=== PATIENT | female | born 1995 | race Caucasian/White ===

== ENCOUNTER 2017-02-26 20:15 | Emergency (ER) | payer MEDICAID ==
--- NOTE | 2017-02-26 20:55 | ER Document Report ---
ED Medical Screen (RME) - General Chief Complaint: near syncopy Stated Complaint: DIZZINESS Time Seen by Provider: 02/26/17 20:48 Notes: This 21-year-old female patient who is 21 weeks reports about a month history of almost blacking out with dizziness and almost fainting. She states it usually happens in the mornings and afternoons when she is at work and been standing for a while. I have greeted and performed a rapid initial assessment of this patient. A comprehensive ED assessment and evaluation of the patient, analysis of test results and completion of the medical decision making process will be conducted by additional ED providers. TRAVEL OUTSIDE OF THE [place] IN LAST 30 DAYS: No - Related Data Allergies/Adverse Reactions: Penicillins Allergy (Severe, Verified 02/26/17 20:20) Swelling of tongue Cephalosporins Allergy (Mild, Verified 02/26/17 20:20) Hives Sulfa (Sulfonamide Antibiotics) Allergy (Mild, Verified 02/26/17 20:20) Hives amoxicillin trihydrate [From Augmentin] Allergy (Verified 02/26/17 20:20) cefaclor [From Ceclor] Allergy (Verified 02/26/17 20:20) codeine [Codeine] Allergy (Verified 02/26/17 20:20) Potassium Clavulanate * [From Augmentin] Allergy (Verified 02/26/17 20:20) Home Medications: Current Home Medications Pnv,Calcium 72/Iron/Folic Acid [ Vitamin Plus Low Iron] 1 tab PO DAILY 02/26/17 [History] Past Medical History - Social History Chew tobacco use (# tins/day): No Frequency of alcohol use: None Drug Abuse: None - Past Medical History Cardiac Medical History: Reports: Hx Hypertension - WITH FIRST Denies: Hx Pulmonary Embolism, Hx Heart Murmur Pulmonary Medical History: Reports: Hx Asthma - childhood Denies: Hx Sleep Apnea, Hx Tuberculosis Neurological Medical History: Reports: Hx Migraine. Denies: Hx Cerebrovascular Accident, Hx Seizures Endocrine Medical History: Denies: Hx Hyperthyroidism, Hx Hypothyroidism Renal/ Medical History: Denies: Hx Kidney Stones, Hx Ovarian Cysts, Hx Peritoneal Dialysis, Hx Pelvic Inflammatory Disease Malignancy Medical History: Denies: Hx Breast Cancer, Hx Cervical Cancer, Hx Ovarian Cancer GI Medical History: Reports: Hx Gastroesophageal Reflux Disease. Denies: Hx Hiatal Hernia, Hx Ulcer Musculoskeltal Medical History: Denies Hx Fibromyalgia Psychiatric Medical History: Denies: Hx Bipolar Disorder, Hx Depression, Hx Post Traumatic Stress Disorder , Hx Schizophrenia Traumatic Medical History: Denies: Hx Fractures Infectious Medical History: Denies: Hx HIV Past Surgical History: Reports: Hx Section - x 1 on 04/23/12 - Immunizations Immunizations up to date: Yes Hx Diphtheria, Pertussis, Tetanus Vaccination: Yes - given today Physical Exam - Vital signs Vitals: Temp Pulse Resp BP Pulse Ox 99.3 F 105 H 18 135/70 H 100 02/26/17 20:21 02/26/17 20:21 02/26/17 20:21 02/26/17 20:21 02/26/17 20:21 Course - Vital Signs Vital signs: Temp Pulse Resp BP Pulse Ox 99.3 F 105 H 18 135/70 H 100 02/26/17 20:21 02/26/17 20:21 02/26/17 20:21 02/26/17 20:21 02/26/17 20:21
[2017-02-26 21:21] LABS: ABSOLUTE BASOPHILS # (AUTO) 0.1 10^3/uL (0.0-0.2); ABSOLUTE EOSINOPHILS # (AUTO) 0.2 10^3/uL (0.0-0.6); ABSOLUTE LYMPHOCYTES (AUTO) 3.6 10^3/uL (0.5-4.7); ABSOLUTE MONOCYTES (AUTO) 1.1 10^3/uL (0.1-1.4); ABSOLUTE NEUT (AUTO) 8.9 10^3/uL (1.7-8.2); EOSINOPHILS % (AUTO) 1.5 % (0-6); HEMATOCRIT 29.9 % (36.0-47.0); HEMOGLOBIN 10.6 g/dL (12.0-15.5); HGB HCT DIFFERENCE 1.9; LYMPHOCYTES % (AUTO) 25.6 % (13-45); MEAN CORPUSCULAR HEMOGLOBIN 32.2 pg (27.0-33.4); MEAN CORPUSCULAR HGB CONC 35.6 g/dL (32.0-36.0); MEAN CORPUSCULAR VOLUME 91 fl (80-97); MONOCYTES % (AUTO) 7.9 % (3-13); RED CELL DISTRIBUTION WIDTH 12.5 % (11.5-14.0)
--- NOTE | 2017-02-26 21:21 | ER Document Report ---
ED General - General Chief Complaint: near syncopy Stated Complaint: DIZZINESS Time Seen by Provider: 02/26/17 20:48 Notes: Patient is a 21-year-old female, at 21 weeks gestation, the comes emergency department for chief complaint of sensations of almost passing out. She states that she has been doing this several times over the past month, she describes typical symptoms of vision blurring, lightheadedness, shaking hands, sweating, and vomiting afterwards. She states she usually gets this after she has been standing for a while and this usually happens at work. She denies palpitations, chest pain, shortness of breath. She denies history of the same as previous pregnancies. She denies any vaginal bleeding, abdominal or back pain, headache, fever. She reports normal nonbloody bowel movements. She denies any current symptoms. TRAVEL OUTSIDE OF THE [place] IN LAST 30 DAYS: No - Related Data Allergies/Adverse Reactions: Penicillins Allergy (Severe, Verified 02/26/17 20:20) Swelling of tongue Cephalosporins Allergy (Mild, Verified 02/26/17 20:20) Hives Sulfa (Sulfonamide Antibiotics) Allergy (Mild, Verified 02/26/17 20:20) Hives amoxicillin trihydrate [From Augmentin] Allergy (Verified 02/26/17 20:20) cefaclor [From Ceclor] Allergy (Verified 02/26/17 20:20) codeine [Codeine] Allergy (Verified 02/26/17 20:20) Potassium Clavulanate * [From Augmentin] Allergy (Verified 02/26/17 20:20) Home Medications: Current Home Medications Pnv,Calcium 72/Iron/Folic Acid [ Vitamin Plus Low Iron] 1 tab PO DAILY 02/26/17 [History] Past Medical History - General Information source: Patient, Parent - Social History Smoking Status: Former Smoker Chew tobacco use (# tins/day): No Frequency of alcohol use: None Drug Abuse: None Lives with: Family Family History: Reviewed & Not Pertinent Patient has suicidal ideation: No Patient has homicidal ideation: No - Past Medical History Cardiac Medical History: Reports: Hx Hypertension - WITH FIRST Denies: Hx Pulmonary Embolism, Hx Heart Murmur Pulmonary Medical History: Reports: Hx Asthma - childhood Denies: Hx Sleep Apnea, Hx Tuberculosis Neurological Medical History: Reports: Hx Migraine. Denies: Hx Cerebrovascular Accident, Hx Seizures Endocrine Medical History: Denies: Hx Hyperthyroidism, Hx Hypothyroidism Renal/ Medical History: Denies: Hx Kidney Stones, Hx Ovarian Cysts, Hx Peritoneal Dialysis, Hx Pelvic Inflammatory Disease Malignancy Medical History: Denies: Hx Breast Cancer, Hx Cervical Cancer, Hx Ovarian Cancer GI Medical History: Reports: Hx Gastroesophageal Reflux Disease. Denies: Hx Hiatal Hernia, Hx Ulcer Musculoskeltal Medical History: Denies Hx Fibromyalgia Psychiatric Medical History: Denies: Hx Bipolar Disorder, Hx Depression, Hx Post Traumatic Stress Disorder , Hx Schizophrenia Traumatic Medical History: Denies: Hx Fractures Infectious Medical History: Denies: Hx HIV Past Surgical History: Reports: Hx Section - x 1 on 04/23/12 - Immunizations Immunizations up to date: Yes Hx Diphtheria, Pertussis, Tetanus Vaccination: Yes - given today Review of Systems - Review of Systems Constitutional: No symptoms reported EENT: No symptoms reported Cardiovascular: See HPI Respiratory: No symptoms reported Gastrointestinal: See HPI Genitourinary: No symptoms reported Female Genitourinary: No symptoms reported Musculoskeletal: No symptoms reported Skin: No symptoms reported Hematologic/Lymphatic: No symptoms reported Neurological/Psychological: See HPI Physical Exam - Vital signs Vitals: Temp Pulse Resp BP Pulse Ox 99.3 F 105 H 18 135/70 H 100 02/26/17 20:21 02/26/17 20:21 02/26/17 20:21 02/26/17 20:21 02/26/17 20:21 Interpretation: Normal - General General appearance: Appears well, Alert In distress: None - HEENT Head: Normocephalic, Atraumatic Eyes: Normal Pupils: PERRL - Respiratory Respiratory status: No respiratory distress Chest status: Nontender Breath sounds: Normal Chest palpation: Normal - Cardiovascular Rhythm: Regular, Tachycardia Heart sounds: Normal auscultation, S1 appreciated, S2 appreciated Murmur: No - Abdominal Inspection: Normal Distension: No distension Bowel sounds: Normal Tenderness: Nontender. No: Tender, Guarding Organomegaly: No organomegaly - Back Back: Normal, Nontender. No: Tender - Extremities General upper extremity: Normal inspection, Nontender, Normal strength, Normal temperature General lower extremity: Normal inspection, Nontender, Normal strength, Normal temperature - Neurological Neuro grossly intact: Yes Cognition: Normal Orientation: AAOx4 [place] Coma Scale Eye Opening: Spontaneous [place] Coma Scale Verbal: Oriented [place] Coma Scale Motor: Obeys Commands Yoly Coma Scale Total: 15 Speech: Normal Motor strength normal: LUE, RUE, LLE, RLE Sensory: Normal - Psychological Associated symptoms: Normal affect, Normal mood - Skin Skin Temperature: Warm Skin Moisture: Dry Skin Color: Normal Course - Re-evaluation Re-evalutation: Patient describes symptoms consistent with near syncope. On examination she is mildly tachycardic. She denies shortness of breath, chest pain, or any current symptoms. When she stands her heart rate elevates to 130. EKG is sinus rhythm with no T-wave inversions or some ST segment changes in consecutive leads, normal RI interval. CBC shows mild leukocytosis which is nonspecific given patient's reported episode of vomiting earlier. Mild normocytic anemia. Chemistry shows very mildly elevated LFTs, patient has no upper abdominal pain on examination, she states she has been taking Tylenol. Blood pressure is normal, no protein in the urine. Urinalysis shows elevated specific gravity and cloudy urine, also some contamination with some bacteria and white blood cells/leukocyte esterase. I discussed this with patient, she denies dysuria or any urinary tract infection symptoms, states she is very familiar with these, she declines antibiotics, urine culture was placed. Patient was given 1 L normal saline, afterwards her tachycardia resolved, when she stands her heart rate is normal. She denies any current symptoms. I suspect her near syncope was vasovagal symptoms secondary to , dehydration, and anemia. Discussed this in detail. Patient states that she is ready to leave, discussed recommendations, follow-up, return precautions in detail with patient and mother. They state understanding and agreement. - Vital Signs Vital signs: Temp Pulse Resp BP Pulse Ox 99.3 F 105 H 16 122/67 98 02/26/17 20:21 02/26/17 20:21 02/26/17 23:45 02/26/17 23:45 02/26/17 23:45 - Laboratory Result Diagrams: 02/26/17 21:05 02/26/17 21:05 Laboratory results interpreted by me: 02/26/17 02/26/17 02/26/17 21:02 21:05 21:05 WBC 14.0 H RBC 3.30 L Hgb 10.6 L Hct 29.9 L Absolute Neutrophils 8.9 H Sodium 136.7 L Carbon Dioxide 21 L Creatinine 0.49 L Total Bilirubin 0.1 L AST 38 H ALT 78 H Total Protein 6.2 L Urine Urobilinogen 2.0 H Ur Leukocyte Esterase LARGE H Discharge - Discharge Clinical Impression: Near syncope Condition: Stable Disposition: HOME, SELF-CARE Additional Instructions: Your symptoms are most likely a combination of dehydration, anemia, and symptoms. Recommendation is to stay better hydrated, if you feel like you are going to pass out lie on the ground and put her feet up into the air. Follow-up with [facility] for additional evaluation and treatment. Return for any concerning or worsening symptoms including chest pain, difficulty breathing, passing out, or any other concerning symptoms. Vasovagal Symptoms Your symptoms seem to be due to a fall in blood pressure, caused by the interaction of your nervous system with your circulatory system. This can result in abnormally slow pulse rate, faintness, abnormal sensations, low blood pressure, difficulty with vision, or fainting (syncope). Vasovagal symptoms may be brought on by emotional distress, pain, dehydration, bleeding, or medication effects. Often, no cause can be identified. Your exam has revealed no signs of a serious problem. Usually, no further tests are required. However, if further workup has been recommended it's important that you follow up as instructed. Should you feel lightheaded or "about to faint," you should sit or lie down as quickly as possible. The episode will usually pass. Recurring symptoms will require further evaluation to determine the cause. Call the physician if you develop severe prolonged dizziness, headache, chest pain, shortness of breath, or other new symptoms. Referrals: JEANNIE JORDAN MD [Primary Care Provider] - Follow up as needed
[2017-02-26 21:36] LABS: ALANINE AMINOTRANSFERASE 78 U/L (9-52); ALBUMIN 3.7 g/dL (3.5-5.0); ALKALINE PHOSPHATASE 64 U/L (38-126); ANION GAP 12 (5-19); ASPARTATE AMINO TRANSFERASE 38 U/L (14-36); BILIRUBIN,DIRECT 0.1 mg/dL (0.0-0.4); BILIRUBIN,TOTAL 0.1 mg/dL (0.2-1.3); BLOOD UREA NITROGEN 7 mg/dL (7-20); CALCIUM 9.2 mg/dL (8.4-10.2); CARBON DIOXIDE 21 mmol/L (22-30); CHLORIDE 104 mmol/L (98-107); CREATININE RESULT 0.49 mg/dL (0.52-1.25); GLUCOSE 91 mg/dL (75-110); POTASSIUM 3.8 mmol/L (3.6-5.0); SODIUM 136.7 mmol/L (137-145); TOTAL PROTEIN 6.2 g/dL (6.3-8.2)
[2017-02-26 21:39] LABS: AMORPHOUS SEDIMENT,URINE TRACE /HPF; APPEARANCE,URINE CLOUDY; BILIRUBIN,URINE NEGATIVE (NEGATIVE); GLUCOSE, URINE NEGATIVE (NEGATIVE); KETONES,URINE NEGATIVE (NEGATIVE); LEUKOCYTE ESTERASE,URINE LARGE (NEGATIVE); NITRITE,URINE NEGATIVE (NEGATIVE); PROTEIN,URINE NEGATIVE (NEGATIVE); URINE SPECIFIC GRAVITY 1.021
[2017-02-26] MEDS ORDERED: NORMAL SALINE 1000 ML 1,000 ML IV ONE (21:44)
--- NOTE | 2017-02-26 22:59 | EKG REPORT ---
SEVERITY:- NORMAL ECG - SINUS RHYTHM : Confirmed by: Esperanza Hinton 26-Feb-2017 22:59:10
[2017-02-26 23:59] VITALS: BP 122/67
== END 2017-02-26 23:59 | disposition home or self-care (01) ==
LOC: ER 20:15
DX: O26.892 Other specified pregnancy related conditions, second trimester (principal); R55 Syncope and collapse; R00.0 Tachycardia, unspecified; R79.89 Other specified abnormal findings of blood chemistry; O99.012 Anemia complicating pregnancy, second trimester; D50.9 Iron deficiency anemia, unspecified; O21.2 Late vomiting of pregnancy; O99.112 Other diseases of the blood and blood-forming organs and certain disorders involving the immune mechanism complicating pregnancy, second trimester; D72.829 Elevated white blood cell count, unspecified; Z3A.21 21 weeks gestation of pregnancy; Z88.0 Allergy status to penicillin; Z88.1 Allergy status to other antibiotic agents; Z88.2 Allergy status to sulfonamides; Z88.5 Allergy status to narcotic agent; Z87.891 Personal history of nicotine dependence
CPT/HCPCS: 93005; 99284; 96360; 36415; 87086; 85025; 80053; 81001; 93010; J7030

== ENCOUNTER 2017-05-22 09:31 | Outpatient (CLI) | payer MEDICAID ==
--- NOTE | 2017-05-22 11:32 | Non Stress Test Report ---
Non Stress Test Datetime Report Generated by CPN: 05/22/2017 11:32 DEMOGRAPHIC EGA NST: 34.5 INDICATION Indication for Study: Ordered by Provider; Other Indication for Study (NST) Other: ABN AFP VITAL SIGNS Temperature - NST: 98.3 MONITORING Monitor Explained: Monitor Explained; Test Explained; Patient Verbalized Understanding Time on Monitor: 05/22/2017 09:47 Time off Monitor: 05/22/2017 10:15 NST Duration: 28 NST INTERVENTIONS NST Interventions: PO Hydration; Reposition Patient Physician Notified NST: C Avalos CNM BABY A: [id number] BABY A Movement : Present Contraction Frequency : NONE FHR Baseline : 145 Accelerations : 15X15 Decelerations : None Variability : Moderate 6-25bpm NST Review: Meets Criteria for Reactive NST NST Review and Verified By : Bassam Boles RN NST Results: Reactive NST REPORT Report Trigger: Send Report
== END 2017-05-22 10:20 | disposition home or self-care (01) ==
LOC: LC 09:31
PROVIDERS: ATTEND Student in an Organized Health Care Education/Training Program
PROC: 4A1HXCZ Monitoring of Products of Conception, Cardiac Rate, External Approach (ICD-10-PCS; principal; 2017-05-22)
DX: R77.2 Abnormality of alphafetoprotein (principal)
CPT/HCPCS: 59025

== ENCOUNTER 2017-06-14 00:49 | Outpatient (CLI) | payer MEDICAID ==
[2017-06-14 01:28] LABS: APPEARANCE,URINE SLIGHTLY-CLOUDY; BILIRUBIN,URINE NEGATIVE (NEGATIVE); COLOR,URINE YELLOW; GLUCOSE, URINE NEGATIVE (NEGATIVE); KETONES,URINE NEGATIVE (NEGATIVE); LEUKOCYTE ESTERASE,URINE NEGATIVE (NEGATIVE); NITRITE,URINE NEGATIVE (NEGATIVE); PROTEIN,URINE NEGATIVE (NEGATIVE)
[2017-06-14] MEDS ORDERED: HYDROXYZINE PAMOATE 50 MG CAPSULE PO ONE (01:42)
[2017-06-14] MEDS ORDERED: HYDROXYZINE PAMOATE 50 MG CAPSULE ONE (01:45)
[2017-06-14 02:04] LABS: URINE AMPHETAMINES SCREEN NEGATIVE
[2017-06-14 02:10] LABS: URINE BARBITURATES SCREEN NEGATIVE; URINE BENZODIAZEPINES SCREEN NEGATIVE; URINE COCAINE SCREEN NEGATIVE; URINE MARIJUANA (THC) SCREEN NEGATIVE; URINE METHADONE SCREEN NEGATIVE; URINE PHENCYCLIDINE SCREEN NEGATIVE
--- NOTE | 2017-06-14 02:46 | Non Stress Test Report ---
Non Stress Test Datetime Report Generated by CPN: 06/14/2017 02:46 DEMOGRAPHIC Test Number: 2 EGA NST: 38.0 INDICATION Indication for Study: Ordered by Provider MONITORING Monitor Explained: Monitor Explained; Test Explained; Patient Verbalized Understanding Time on Monitor: 06/14/2017 01:03 Time off Monitor: 06/14/2017 02:28 NST Duration: 85 NST INTERVENTIONS NST Interventions: PO Hydration; Reposition Patient Physician Notified NST: Dr. Maxim BABY A: [id number] BABY A Movement : Present Contraction Frequency : irregular FHR Baseline : 125 Accelerations : 15X15 Decelerations : None Variability : Moderate 6-25bpm NST Review: Meets Criteria for Reactive NST NST Review and Verified By : Mustapha Bradley RN NST Results: Reactive NST REPORT Report Trigger: Send Report
== END 2017-06-14 02:38 | disposition home or self-care (01) ==
LOC: LC 00:49
PROVIDERS: ATTEND Obstetrics & Gynecology
PROC: 4A1HXCZ Monitoring of Products of Conception, Cardiac Rate, External Approach (ICD-10-PCS; principal; 2017-06-14)
DX: O47.1 False labor at or after 37 completed weeks of gestation (principal); O99.283 Endocrine, nutritional and metabolic diseases complicating pregnancy, third trimester; E86.0 Dehydration; Z3A.38 38 weeks gestation of pregnancy
CPT/HCPCS: 59025; 81005; 80307; J3490

== ENCOUNTER 2017-06-21 04:52 | Inpatient (IN) | payer MEDICAID ==
[2017-06-20 12:31] LABS: ABSOLUTE BASOPHILS # (AUTO) 0.1 10^3/uL (0.0-0.2); ABSOLUTE EOSINOPHILS # (AUTO) 0.2 10^3/uL (0.0-0.6); ABSOLUTE LYMPHOCYTES (AUTO) 3.5 10^3/uL (0.5-4.7); ABSOLUTE MONOCYTES (AUTO) 0.9 10^3/uL (0.1-1.4); ABSOLUTE NEUT (AUTO) 10.5 10^3/uL (1.7-8.2); BASOPHILS % (AUTO) 0.4 % (0-2); EOSINOPHILS % (AUTO) 1.1 % (0-6); HEMOGLOBIN 12.3 g/dL (12.0-15.5); LYMPHOCYTES % (AUTO) 23.1 % (13-45); MEAN CORPUSCULAR HEMOGLOBIN 29.5 pg (27.0-33.4); MEAN CORPUSCULAR HGB CONC 33.2 g/dL (32.0-36.0); MEAN CORPUSCULAR VOLUME 89 fl (80-97); PLATELET COUNT 377 10^3/uL (150-450); RED BLOOD COUNT 4.16 10^6/uL (3.72-5.28); RED CELL DISTRIBUTION WIDTH 13.9 % (11.5-14.0); SEGMENTED NEUTROPHILS % (AUTO) 69.4 % (42-78); TOTAL CELLS COUNTED % (AUTO) 100 %; WHITE BLOOD COUNT 15.1 10^3/uL (4.0-10.5)
[2017-06-20 12:55] LABS: APPEARANCE,URINE CLEAR; BILIRUBIN,URINE NEGATIVE (NEGATIVE); COLOR,URINE YELLOW; GLUCOSE, URINE NEGATIVE (NEGATIVE); KETONES,URINE NEGATIVE (NEGATIVE); LEUKOCYTE ESTERASE,URINE NEGATIVE (NEGATIVE); NITRITE,URINE NEGATIVE (NEGATIVE); PROTEIN,URINE NEGATIVE (NEGATIVE); UROBILINOGEN,URINE NEGATIVE mg/dL (<2.0)
[2017-06-20 13:08] LABS: URINE AMPHETAMINES SCREEN NEGATIVE; URINE BARBITURATES SCREEN NEGATIVE; URINE BENZODIAZEPINES SCREEN NEGATIVE; URINE COCAINE SCREEN NEGATIVE; URINE MARIJUANA (THC) SCREEN NEGATIVE; URINE METHADONE SCREEN NEGATIVE; URINE PHENCYCLIDINE SCREEN NEGATIVE
[2017-06-20 14:52] LABS: CHLAM PCR NOT DETECTED (NOT DETECT); GON PCR NOT DETECTED (NOT DETECT)
[2017-06-21] MEDS ORDERED: RINGERS SOLUTION,LACTATED 2,000 ML IV PRN (05:00)
[2017-06-21] MEDS ORDERED: CLINDAMYCIN 900 MG/D5W RTU 50 ML IV PRN (05:00)
[2017-06-21] MEDS ORDERED: LIDOCAINE 0.5% INJ-PF (5 MG/ML) 50 ML SDV SUBCUT PRN (05:00)
[2017-06-21] MEDS: LACTATED RINGERS 1000 ML IV PRN ×2 (05:55→15:05)
[2017-06-21] MEDS ORDERED: OXYTOCIN 10 UNIT/ML VIAL ONE (07:27)
[2017-06-21] MEDS ORDERED: DEXAMETHASONE SOD PHOSPHATE INJ 4 MG/1 ML VIAL ONE (07:27)
[2017-06-21] MEDS ORDERED: KETOROLAC TROMETHAMINE INJ/PF 30 MG/1 ML SDV ONE (07:28)
[2017-06-21] MEDS ORDERED: MIDAZOLAM 2 MG/2 ML INJ ONE (07:28)
[2017-06-21] MEDS ORDERED: OXYTOCIN/NORMAL SALINE 20 UNIT/1,000 ML RTUINJ ONE (07:28)
[2017-06-21] MEDS ORDERED: ACETAMINOPHEN 100 ML IV ONE (07:28)
[2017-06-21] MEDS ORDERED: FENTANYL CITRATE INJ/PF 100 MCG/2 ML AMPUL ONE (07:28)
[2017-06-21] MEDS ORDERED: EPHEDRINE SULFATE INJ 50 MG/1 ML AMPULE ONE (07:29)
[2017-06-21] MEDS ORDERED: ONDANSETRON HCL INJ/PF 4 MG/2 ML SDV ONE (07:29)
[2017-06-21] MEDS ORDERED: TETRACAINE HCL/PF 20MG/2ML AMPULE (SPINAL) ONE (07:29)
[2017-06-21] MEDS ORDERED: PROMETHAZINE HCL INJ 25 MG/1 ML VIAL IV PRN ×3 (08:09→09:13)
[2017-06-21] MEDS ORDERED: MORPHINE SULFATE 10 MG/ML INJ IV PRN (08:09)
[2017-06-21] MEDS ORDERED: ONDANSETRON HCL INJ/PF 4 MG/2 ML SDV IV PRN (08:09)
[2017-06-21] MEDS ORDERED: MEPERIDINE HCL/PF INJ 25 MG/1 ML DISP.SYRIN IV PRN (08:09)
[2017-06-21] MEDS ORDERED: FENTANYL CITRATE INJ/PF 100 MCG/2 ML AMPUL IV PRN ×3 (08:09)
[2017-06-21] MEDS ORDERED: DIPHENHYDRAMINE HCL 50 MG/ML VIAL IV PRN (08:09)
[2017-06-21] MEDS ORDERED: OXYCODONE-ACETAMINOPHEN 5-325 MG TABLET PO PRN (09:13)
[2017-06-21] MEDS ORDERED: MEASLES,MUMPS&RUBELLA VACC/PF 0.5 ML VIAL SUBCUT PRN (09:13)
[2017-06-21] MEDS ORDERED: OXYTOCIN/NORMAL SALINE 20 UNIT/1,000 ML RTUINJ IV PRN (09:13)
[2017-06-21] MEDS ORDERED: SIMETHICONE 80 MG TAB.CHEW PO PRN (09:13)
[2017-06-21] MEDS ORDERED: HYDROMORPHONE HCL INJ/PF 2 MG/ML AMPULE IV PRN (09:13)
[2017-06-21] MEDS ORDERED: ACETAMINOPHEN 325 MG TABLET PO PRN (09:13)
[2017-06-21] MEDS ORDERED: DIPH/PERTUSS(ACELL)/TETANUS VAC/PF 0.5 ML SYR (>=10YO) IM PRN (09:13)
[2017-06-21] MEDS ORDERED: ACETAMINOPHEN 100 ML IV PRN (09:13)
--- NOTE | 2017-06-21 09:19 | Brief Operative Note ---
BRIEF OPERATIVE REPORT DATE OF SURGERY: 06/21/17 TIME OF SURGERY: 09:00 PREOPERATIVE DIAGNOSIS: , 39+0ega, H/o C/S x 2 POSTOPERATIVE DIAGNOSIS: HAIDER - delivered SURGEON: DIONNE LORENZO FINDINGS: VFI delivered cephalic presentation, Apgars 8/9, Weight 6#6oz, time of 0809. UOP 225ml, IVF 2000ml, 600ml EBL (QBL 451ml) COMPLICATIONS: None ESTIMATED BLOOD LOSS: 600ml TISSUE REMOVED OR ALTERED: placenta and cord not sent to pathology TECHNICAL PROCEDURE: Repeat section
--- NOTE | 2017-06-21 09:20 | PDOC DELIVERY SUMMARY ---
Delivery Summary - Maternal Hx : III Hx Para: II Hx # Term Pregnancies: 2 Hx # Pregnancies: 0 Number of Living Children: 2 VANI: 06/28/17 Gestational Age: 39 Risk Factors: Previous Ruptured Membranes: AROM Time of Rupture: 08:08 Fluids: Clear - Delivery Labor: Not In Labor Presentation: Vertex Heart Rate Monitoring: Done Pre-Operatively Uterine Contraction Monitoring: External Support Person Present: Yes - PATIENT'S MOTHER(LEV) Location: : Scheduled, Repeat Placenta: Within Normal Limits Placenta Description: normal Number of Vessels (Cord): 3 Nuchal Cord: No Delivery of Placenta Date: 06/21/17 Delivery of Placenta Time: 08:10 Estimated Blood Loss: 600 Quantitative Blood Loss (QBL): 451 - Medications Type of Anesthesia:: Spinal - Infant Assess and Care Baby 1 Female Delivery of Infant Date: 06/21/17 Delivery of Time: 08:09 at 1 minute: 8 at 5 minutes: 9 Preprinted Number On Band: [id number] Infant Skin to Skin: No To Nursery At: 08:14 Mode of Transport: Bassinet Infant Delivery Weight: 2,895 Delivery Length: 19 in - Delivery Personnel Travel Med Surg Rn: HARMONY LE RN: STEPHANE WELCH RN: LUBNA VILLAFUERTE MD: DIONNE LORENZO
[2017-06-21] MEDS ORDERED: METOCLOPRAMIDE HCL INJ/PF 10 MG/2 ML SDV ONE (12:09)
[2017-06-21] MEDS: OXYCODONE-ACETAMINOPHEN 5-325 MG TABLET PO PRN ×2 (12:18→20:45)
[2017-06-21] MEDS: DOCUSATE SODIUM 100 MG CAPSULE PO SCH ×2 (12:59→17:39)
[2017-06-21] MEDS: PRENATAL VITAMIN W DHA CAPSULE PO SCH (12:59)
[2017-06-21] MEDS: KETOROLAC TROMETHAMINE INJ/PF 30 MG/1 ML SDV IV SCH ×2 (13:18→22:04)
--- NOTE | 2017-06-21 21:56 | Operative Report ---
Operative Report DATE OF SURGERY: 06/21/17 PREOPERATIVE DIAGNOSIS: , 39+0ega, H/o C/S x 2 POSTOPERATIVE DIAGNOSIS: HAIDER - delivered OPERATION: Repeat section SURGEON: DIONNE LORENZO ANESTHESIA: Spinal TISSUE REMOVED OR ALTERED: placenta and cord not sent to pathology ESTIMATED BLOOD LOSS: 600 INTRAOPERATIVE FINDINGS: VFI delivered cephalic presentation, Apgars 8/9, Weight 6#6oz, time of 0809. UOP 225ml, IVF 2000ml, 600ml EBL (QBL 451ml) PROCEDURE: Anesthesia: Spinal Anesthesia provider: [Terrie Piña CRNA, MD] Urine output: [225ml] IV fluids: [2000ml] Indications: [21yo at 39+0ega presents for Repeat section scheduled. She has a history of section times two. She declines BTL. She desires OCPs for contraception. The risks/benefits/alternatives were reviewed and she desires to proceed with planned repeal section.] Procedure: The patient was taken to the operating room where spinal anesthesia was obtained and found to be adequate. She was then prepped and draped in the normal sterile fashion and placed in the dorsal supine position with a leftward tilt. A Pfannenstiel skin incision was then made and carried through to the underlying layers of the fascia with the scalpel. The fascia was incised in the midline and the incision extended laterally with the Mims scissors. The superior aspect of the fascial incision was then grasped with Rivera er clamps elevated and the underlying rectus muscles dissected off [bluntly]. Attention was then turned to the inferior aspect of the fascial incision which in a similar fashion was grasped, tented up with Deidre clamps, and the rectus muscles dissected off [bluntly]. The rectus muscles were then in the midline and the peritoneum at the amount identified and entered [bluntly]. The peritoneal incision was then extended superiorly and inferiorly with good visualization of the bladder. The bladder blade was inserted and the vesicouterine peritoneum identified grasped with [place]i pickups and entered sharply with the Metzenbaum scissors. This incision was then extended laterally with the Metzenbaum scissors and a bladder flap created digitally. The bladder blade was then reinserted and the lower uterine segment incised in a transverse fashion with the scalpel. The uterine incision was then extended bluntly. The bladder blade was removed and the 's head was delivered from cephalic presentation atraumatically. The nose and mouth were suctioned and the cord doubly clamped and cut. And the infant was handed off to waiting pediatricians. The placenta was then delivered spontaneously and the uterus exteriorized and cleared of all clots and debris. The uterine incision was then repaired with 1- 0 Vicryl in a running locked fashion. A second layer of the same suture was used to obtain hemostasis via imbrication of the initial layer. The bladder flap was then repaired with 3-0 chromic in a running fashion. The uterus was returned to the patient's abdomen and Interceed was placed overlying the uterine incision to prevent adhesions. The gutters were cleared of all clots and debris. All operative sites were noted to be hemostatic. The fascia was reapproximated with 0 Vicryl in a running fashion from each lateral edge to the midline. The skin was closed with 3-0 Monocryl in a running subcuticular fashion with overlying Dermabond for additional dressing as well as wound closure. The patient tolerated the procedure well. Sponge lap needle and instrument counts are correct times 2. 900mg of Clindamycin no were given prior to skin incision. The patient was taken to the recovery area awake and in stable condition.
[2017-06-22] MEDS: KETOROLAC TROMETHAMINE INJ/PF 30 MG/1 ML SDV IV SCH (05:43)
[2017-06-22 07:39] LABS: HEMATOCRIT 32.3 % (36.0-47.0); MEAN CORPUSCULAR HEMOGLOBIN 30.1 pg (27.0-33.4); MEAN CORPUSCULAR HGB CONC 33.9 g/dL (32.0-36.0); MEAN CORPUSCULAR VOLUME 89 fl (80-97); PLATELET COUNT 323 10^3/uL (150-450); RED BLOOD COUNT 3.64 10^6/uL (3.72-5.28); RED CELL DISTRIBUTION WIDTH 13.7 % (11.5-14.0); WHITE BLOOD COUNT 17.4 10^3/uL (4.0-10.5)
[2017-06-22] MEDS: PRENATAL VITAMIN W DHA CAPSULE PO SCH (09:23)
[2017-06-22] MEDS: DOCUSATE SODIUM 100 MG CAPSULE PO SCH ×2 (09:23→18:33)
--- NOTE | 2017-06-22 09:38 | PDOC PROGRESS REPORT ---
Subjective-OB Progress Note for:: 06/22/17 Subjective: sp r c/s day #1 Pt doing well, tolerating diet, lochia is stable, pain well controlled, voiding without difficulty, passing gas. Physical Exam (OB) Vital Signs: Temp Pulse Resp BP Pulse Ox 98.3 F 84 16 122/69 98 06/22/17 08:26 06/22/17 08:26 06/22/17 08:26 06/22/17 08:26 06/22/17 08:26 Intake & Output 06/21/17 06/22/17 06/23/17 06:59 06:59 06:59 Intake Total 5634 Output Total 2310 Balance 3324 Weight 86.18 kg - Dressing Removed: Yes Incision: Open Closure Type: Surgical Glue - Lochia Lochia Amount: Small 10-25 ml Lochia Color: Rubra/Red - Abdomen Description: Soft, Round Hernia Present: No Fundal Description: Firm, Midline Fundal Height: u/u - u/2 Objective-Diagnostic Laboratory: 06/22/17 07:15 06/22/17 07:15 WBC 17.4 H RBC 3.64 L Hgb 11.0 L Hct 32.3 L MCV 89 MCH 30.1 MCHC 33.9 RDW 13.7 Plt Count 323 Assessment and Plan(PN) - Assessment and Plan (1) Delivery by elective caesarean section Is this a current diagnosis for this admission?: Yes Plan: routine postop care - Time Spent with Patient Time with patient: Less than 15 minutes Critical Time spent with patient: Less than 15 minutes Medications reviewed and adjusted accordingly: Yes - Disposition Anticipated Discharge: Home Within: within 24 hours
[2017-06-22] MEDS: IBUPROFEN 800 MG TABLET PO SCH ×3 (12:03→23:52)
[2017-06-22] MEDS: OXYCODONE-ACETAMINOPHEN 5-325 MG TABLET PO PRN (20:57)
[2017-06-23] MEDS: IBUPROFEN 800 MG TABLET PO SCH ×2 (06:48→11:23)
[2017-06-23] MEDS: OXYCODONE-ACETAMINOPHEN 5-325 MG TABLET PO PRN (07:56)
[2017-06-23 08:44] VITALS: BP 117/61
[2017-06-23] MEDS: PRENATAL VITAMIN W DHA CAPSULE PO SCH (09:43)
[2017-06-23] MEDS: DOCUSATE SODIUM 100 MG CAPSULE PO SCH (09:44)
--- NOTE | 2017-06-23 10:38 | PDOC DISCHARGE SUMMARY ---
Final Diagnosis Discharge Date: 06/23/17 - Final Diagnosis (1) Delivery by elective caesarean section Is this a current diagnosis for this admission?: Yes Discharge Data - Discharge Medication Home Medications: Pnv,Calcium 72/Iron/Folic Acid [ Vitamin Plus Low Iron] 1 tab PO DAILY 02/26/17 Albuterol Sulfate [Proventil Hfa] 1 puff PO DAILY PRN 06/20/17 Docusate Sodium [Colace 100 mg Capsule] 100 mg PO BID capsule 06/23/17 Procedures: NST Intrapartum Procedure(s): : Low Cervical, Transverse - Diagnosis Test Laboratory: Temp Pulse Resp BP Pulse Ox 98.2 F 81 16 117/61 98 06/23/17 08:43 06/23/17 08:43 06/23/17 08:43 06/23/17 08:43 06/23/17 08:43 06/20/17 06/20/17 06/22/17 11:15 11:55 07:15 RBC 4.16 3.64 L Hgb 12.3 11.0 L Hct 37.0 32.3 L Urine Opiates Screen NEGATIVE - Discharge information/Instructions Discharge Activity: Balance Activity w/Rest, No Lifting/Push/Pulling, Pelvic Rest, No tub bath Discharge Diet: Regular Disposition: HOME, SELF-CARE Follow up with: [facility] in: 1, Weeks
== END 2017-06-23 11:30 | disposition home or self-care (01) | DRG 766 ==
LOC: 2S 04:52
PROVIDERS: ADMIT Student in an Organized Health Care Education/Training Program; ATTEND Student in an Organized Health Care Education/Training Program
PROC: 10D00Z1 Extraction of Products of Conception, Low, Open Approach (ICD-10-PCS; principal; 2017-06-21 07:45)
DX: O34.211 Maternal care for low transverse scar from previous cesarean delivery (principal); O99.214 Obesity complicating childbirth; O99.52 Diseases of the respiratory system complicating childbirth; O99.334 Smoking (tobacco) complicating childbirth; N85.8 Other specified noninflammatory disorders of uterus; J45.909 Unspecified asthma, uncomplicated; F17.211 Nicotine dependence, cigarettes, in remission; Z3A.39 39 weeks gestation of pregnancy; Z37.0 Single live birth
CPT/HCPCS: 1961; 36415; 59025; 80307; 81001; 85025; 85027; 86850; 86900; 86901; 87491; 87591; 94799; C1765; J0131; J1100; J1170; J1885; J2250; J2405; J2590; J2765; J3010; J3490; J7120

== ENCOUNTER 2018-06-03 21:29 | Outpatient (CLI) | payer MEDICAID ==
[2018-06-03 22:09] LABS: APPEARANCE,URINE SLIGHTLY-CLOUDY; BILIRUBIN,URINE NEGATIVE (NEGATIVE); COLOR,URINE AMBER; GLUCOSE, URINE NEGATIVE (NEGATIVE); KETONES,URINE TRACE mg/dL (NEGATIVE); LEUKOCYTE ESTERASE,URINE NEGATIVE (NEGATIVE); NITRITE,URINE NEGATIVE (NEGATIVE); PROTEIN,URINE 30 mg/dL (NEGATIVE); URINE SPECIFIC GRAVITY 1.016
[2018-06-03 22:22] LABS: URINE AMPHETAMINES SCREEN NEGATIVE; URINE BARBITURATES SCREEN NEGATIVE; URINE BENZODIAZEPINES SCREEN NEGATIVE; URINE COCAINE SCREEN NEGATIVE; URINE MARIJUANA (THC) SCREEN NEGATIVE; URINE METHADONE SCREEN NEGATIVE; URINE PHENCYCLIDINE SCREEN NEGATIVE
[2018-06-03] MEDS ORDERED: RINGERS SOLUTION,LACTATED 1,000 ML IV PRN (22:55)
[2018-06-03] MEDS ORDERED: HYDROXYZINE PAMOATE 50 MG CAPSULE ONE (22:58)
[2018-06-03] MEDS ORDERED: HYDROXYZINE PAMOATE 50 MG CAPSULE PO ONE (23:15)
--- NOTE | 2018-06-04 02:11 | Non Stress Test Report ---
Non Stress Test Datetime Report Generated by CPN: 06/04/2018 02:11 DEMOGRAPHIC EGA NST: 36.5 INDICATION Indication for Study: Ordered by Provider MONITORING Monitor Explained: Monitor Explained; Test Explained; Patient Verbalized Understanding Time on Monitor: 06/03/2018 21:45 Time off Monitor: 06/04/2018 01:38 NST Duration: 233 NST INTERVENTIONS NST Interventions: PO Hydration; IV Fluids; Reposition Patient; Other Physician Notified NST: Dr. Maxim BABY A: [id number] BABY A Movement : Present Contraction Frequency : 5-13 FHR Baseline : 135 Accelerations : 15X15 Decelerations : Late; Variable; Prolonged Variability : Moderate 6-25bpm NST Review: Meets Criteria for Reactive NST NST Results: Reactive NST COMMENTS NST Comments: Left AMA after being 23Obs for decelerations. Patient was treated for decelerations with oxygen, fluids, and repositioning. Periods of reactivity between decelerations. NST REPORT Report Trigger: Send Report
== END 2018-06-04 01:54 | disposition left against medical advice (07) ==
LOC: LC 21:29 → LR 06-04 00:56 → UNDOADMOB 06-04 00:56 → LC 06-04 01:54 → UNDODISOB 06-04 01:54
PROVIDERS: ATTEND Obstetrics & Gynecology
PROC: 4A0HXCZ Measurement of Products of Conception, Cardiac Rate, External Approach (ICD-10-PCS; principal; 2018-06-03)
DX: O47.03 False labor before 37 completed weeks of gestation, third trimester (principal); O76 Abnormality in fetal heart rate and rhythm complicating labor and delivery; Z53.21 Procedure and treatment not carried out due to patient leaving prior to being seen by health care provider; Z3A.36 36 weeks gestation of pregnancy
CPT/HCPCS: 59025; 94760; 81001; 80307; J3490

== ENCOUNTER 2018-06-22 05:59 | Inpatient (IN) | payer MEDICAID ==
[2018-06-21 10:46] LABS: APPEARANCE,URINE SLIGHTLY-CLOUDY; BILIRUBIN,URINE NEGATIVE (NEGATIVE); COLOR,URINE YELLOW; GLUCOSE, URINE NEGATIVE (NEGATIVE); KETONES,URINE NEGATIVE (NEGATIVE); LEUKOCYTE ESTERASE,URINE NEGATIVE (NEGATIVE); NITRITE,URINE NEGATIVE (NEGATIVE); PROTEIN,URINE NEGATIVE (NEGATIVE); UROBILINOGEN,URINE NEGATIVE mg/dL (<2.0)
[2018-06-21 10:58] LABS: URINE AMPHETAMINES SCREEN NEGATIVE; URINE BARBITURATES SCREEN NEGATIVE; URINE BENZODIAZEPINES SCREEN NEGATIVE; URINE COCAINE SCREEN NEGATIVE; URINE MARIJUANA (THC) SCREEN NEGATIVE; URINE METHADONE SCREEN NEGATIVE; URINE PHENCYCLIDINE SCREEN NEGATIVE
[2018-06-21 11:05] LABS: HEMATOCRIT 37.7 % (36.0-47.0); HEMOGLOBIN 12.9 g/dL (12.0-15.5); MEAN CORPUSCULAR HEMOGLOBIN 30.4 pg (27.0-33.4); MEAN CORPUSCULAR HGB CONC 34.2 g/dL (32.0-36.0); MEAN CORPUSCULAR VOLUME 89 fl (80-97); PLATELET COUNT 378 10^3/uL (150-450); RED BLOOD COUNT 4.25 10^6/uL (3.72-5.28); RED CELL DISTRIBUTION WIDTH 13.3 % (11.5-14.0); WHITE BLOOD COUNT 20.3 10^3/uL (4.0-10.5)
[2018-06-21 11:21] LABS: ABSOLUTE LYMPHOCYTES# (MANUAL) 4.7 10^3/uL (0.5-4.7); ABSOLUTE MONOCYTES # (MANUAL) 0.4 10^3/uL (0.1-1.4); ABSOLUTE NEUTROPHILS# (MANUAL) 15.2 10^3/uL (1.7-8.2); BASOPHILS % (MANUAL) 0 % (0-2); EOSINOPHILS % (MANUAL) 0 % (0-6); LYMPHOCYTES % (MANUAL) 23 % (13-45); MONOCYTES % (MANUAL) 2 % (3-13); SEGMENTED NEUTROPHILS % (MAN) 75 % (42-78); TOTAL CELLS COUNTED 100
[2018-06-21 11:23] LABS: PLATELET COMMENT ADEQUATE; RBC MORPHOLOGY COMMENT NORMO-CYTIC/CHROMIC
[~2018-06-22 05:59] MED LIST: LIDOCAINE 0.5% INJ-PF (5 MG/ML) 50 ML SDV SUBCUT PRN
[2018-06-22] MEDS ORDERED: CLINDAMYCIN 900 MG/D5W RTU 900 MG/50 ML RTUPB IV PRN (07:49)
[2018-06-22] MEDS ORDERED: RINGERS SOLUTION,LACTATED 1,500 ML IV PRN (07:50)
[2018-06-22] MEDS: LACTATED RINGERS 1000 ML IV PRN ×4 (08:04→12:41)
[2018-06-22] MEDS ORDERED: ACETAMINOPHEN 1,000 MG/100 ML RTUPB IV ONE (10:12)
[2018-06-22] MEDS ORDERED: CITRIC ACID/SODIUM CITRATE ORAL SOLN 15 ML UDCUP ONE (10:12)
[2018-06-22] MEDS ORDERED: EPHEDRINE SULFATE INJ 50 MG/1 ML AMPULE ONE (10:20)
[2018-06-22] MEDS ORDERED: BUPIVACAINE HCL/DEX-WATER/PF 15 MG/2 ML AMPULE ONE (10:20)
[2018-06-22] MEDS ORDERED: PROMETHAZINE HCL INJ 25 MG/1 ML VIAL ONE (10:20)
[2018-06-22] MEDS ORDERED: ONDANSETRON HCL INJ/PF 4 MG/2 ML SDV ONE (10:20)
[2018-06-22] MEDS ORDERED: FENTANYL CITRATE INJ/PF 100 MCG/2 ML AMPUL ONE (10:20)
[2018-06-22] MEDS ORDERED: PROPOFOL INJ 200 MG/20 ML VIAL IV ONE (10:20)
[2018-06-22] MEDS ORDERED: OXYTOCIN 10 UNIT/ML VIAL ONE (10:21)
[2018-06-22] MEDS ORDERED: METHYLERGONOVINE MALEATE INJ/PF 0.2 MG/1 ML AMPULE ONE (10:23)
[2018-06-22] MEDS ORDERED: MORPHINE SULFATE 10 MG/ML INJ IV PRN (10:43)
[2018-06-22] MEDS ORDERED: DIPHENHYDRAMINE HCL 50 MG/ML VIAL IV PRN (10:43)
[2018-06-22] MEDS ORDERED: FENTANYL CITRATE INJ/PF 100 MCG/2 ML AMPUL IV PRN ×3 (10:43)
[2018-06-22] MEDS ORDERED: MEPERIDINE HCL/PF INJ 25 MG/1 ML DISP.SYRIN IV PRN (10:43)
[2018-06-22] MEDS ORDERED: PROMETHAZINE HCL INJ 25 MG/1 ML VIAL IV PRN ×3 (10:43→12:19)
[2018-06-22] MEDS ORDERED: KETOROLAC TROMETHAMINE 60 MG/2 ML SDV ONE (10:45)
[2018-06-22] MEDS ORDERED: RINGERS SOLUTION,LACTATED 1,000 ML IV PRN (12:19)
[2018-06-22] MEDS ORDERED: DIPH/PERTUSS(ACELL)/TETANUS VAC/PF 0.5 ML SYR (>=10YO) IM PRN (12:19)
[2018-06-22] MEDS ORDERED: OXYCODONE-ACETAMINOPHEN 5-325 MG TABLET PO PRN (12:19)
[2018-06-22] MEDS ORDERED: MEASLES,MUMPS&RUBELLA VACC/PF 0.5 ML VIAL SUBCUT PRN (12:19)
[2018-06-22] MEDS ORDERED: OXYTOCIN/NORMAL SALINE 20 UNIT/1,000 ML RTUINJ IV PRN (12:19)
[2018-06-22] MEDS ORDERED: ACETAMINOPHEN 1,000 MG/100 ML RTUPB IV PRN (12:19)
[2018-06-22] MEDS ORDERED: ACETAMINOPHEN 325 MG TABLET PO PRN (12:19)
--- NOTE | 2018-06-22 12:22 | PDOC DELIVERY SUMMARY ---
Delivery Summary - Maternal Hx : IV Hx Para: III Hx # Term Pregnancies: 3 Number of Living Children: 3 VANI: 06/26/18 Risk Factors: Previous Ruptured Membranes: AROM Fluids: Clear - Delivery Presentation: Vertex Heart Rate Monitoring: Done Pre-Operatively Support Person Present: Yes Location: OR : Scheduled Placenta: Within Normal Limits Delivery of Placenta Date: 06/22/18 Delivery of Placenta Time: 11:04 - Medications Type of Anesthesia:: Spinal - Infant Assess and Care Baby 1 Male Delivery of Infant Date: 06/22/18 Delivery of Infant Time: 11:02 at 1 minute: 9 at 5 minutes: 9 Preprinted Number On Band: [id number] Skin to Skin: No Mode of Transport: Bassinet Delivery Weight: 2,895 Infant Delivery Length: 20.25 in - Delivery 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
[2018-06-22] MEDS: MORPHINE SULFATE 10 MG/ML INJ IV PRN ×2 (15:20→21:18)
[2018-06-22] MEDS: DOCUSATE SODIUM 100 MG CAPSULE PO SCH (17:16)
[2018-06-22] MEDS: KETOROLAC TROMETHAMINE INJ/PF 30 MG/1 ML SDV IV SCH (17:16)
[2018-06-22] MEDS: SIMETHICONE 80 MG TAB.CHEW PO PRN ×2 (17:16→23:18)
[2018-06-22] MEDS: OXYCODONE-ACETAMINOPHEN 5-325 MG TABLET PO PRN ×2 (17:16→23:14)
--- NOTE | 2018-06-22 19:09 | OPERATIVE REPORT E ---
Operative Report NAME: MARVIN MANN : 1995 AGE: 22Y DATE OF SURGERY: 06/22/2018 ROOM: 216 PREOPERATIVE DIAGNOSES: 1. INTRAUTERINE AT 39 PLUS WEEKS. 2. PREVIOUS SECTION X3. 3. UNDESIRED FERTILITY. POSTOPERATIVE DIAGNOSES: 1. INTRAUTERINE AT 39 PLUS WEEKS. 2. PREVIOUS SECTION X3. 3. UNDESIRED FERTILITY. PROCEDURE: A repeat low transverse hysterotomy section with [place] bilateral tubal ligation. SURGEON: JEANNIE JORDAN M.D. ANESTHESIA: Perlita Aguirre M.D. with a spinal. FINDINGS: Dense adhesions of the rectus muscle and fascia, multiple adhesions of the uterus to the anterior abdominal wall. Male in cephalic presentation with scores of 9 and 9, weight 6 pounds 6 ounces. Normal tubes and ovaries. COMPLICATIONS: None. ESTIMATED BLOOD LOSS: 750 mL. SPECIMENS REMOVED: Bilateral fallopian tube segments. PROCEDURE IN DETAIL: The patient was taken to the operating room, prepared and draped in a normal sterile fashion in the supine position with a leftward tilt. A transverse skin incision was made with a scalpel and carried through to the underlying layer of fascia with the same scalpel. The fascia was excised in the midline, extended laterally with Mayos. The rectus muscle was cut to provide room due to scar tissue formation. The rectus muscle was then dissected sharply from the fascia. The rectus muscle was divided sharply with Mayos in the midline. The peritoneal cavity was entered sharply with Metzenbaums with good visualization of the bladder and the uterus. The bladder blade was inserted. The adhesions at the uterine fundus to the anterior abdominal wall were released using Metzenbaums and Bovie as necessary. The hysterotomy was nicked with a scalpel and extended laterally with surgeon finger fracture. The was then delivered atraumatically. The nose and mouth were suctioned with a suction bulb and the cord was clamped and cut, and the infant was handed off to awaiting adjuster. The cord blood was collected. The placenta was removed manually. The uterus was exteriorized and cleared of clots and debris. The hysterotomy was closed with 0 Monocryl in a running lock fashion, the second layer was then used to imbricate to ensure hemostasis. Attention was turned to the fallopian tubes, where the right fallopian tube was grasped with a [place] and mesosalpinx was divided. The intermediate section of fallopian tube was tied off with 2 large pieces of 2-0 Chromic and the intermediate section of fallopian tube was removed using Metzenbaums. The pedicles were made hemostatic with a Bovie. This was repeated on the left fallopian tube without difficulty. The uterus was then returned to the abdomen and the peritoneal cavity was cleared of clots and debris. The pedicles were reinspected and found to be intact and hemostatic. The rectus muscle was reapproximated with a mattress stitch of 2-0 Chromic. The fascia was closed with 0 Vicryl. The subcutaneous layer was closed with plain catgut. The skin was closed with 4-0 Vicryl. The patient tolerated the procedure well. Sponge, lap, and needle counts were correct x2, and the patient was taken to recovery in stable condition. DICTATING PHYSICIAN: JEANNIE JORDAN M.D. [id number] PHY#: [id number] [id number] JOB#: [id number] ACCT: [id number] cc:JEANNIE JORDAN M.D. >
[2018-06-23] MEDS: KETOROLAC TROMETHAMINE INJ/PF 30 MG/1 ML SDV IV SCH ×2 (02:43→09:59)
[2018-06-23 07:06] LABS: HEMATOCRIT 30.8 % (36.0-47.0); MEAN CORPUSCULAR HEMOGLOBIN 30.3 pg (27.0-33.4); MEAN CORPUSCULAR HGB CONC 33.8 g/dL (32.0-36.0); MEAN CORPUSCULAR VOLUME 90 fl (80-97); PLATELET COUNT 226 10^3/uL (150-450); RED BLOOD COUNT 3.43 10^6/uL (3.72-5.28); RED CELL DISTRIBUTION WIDTH 13.8 % (11.5-14.0); WHITE BLOOD COUNT 11.7 10^3/uL (4.0-10.5)
[2018-06-23 07:22] LABS: HEMOGLOBIN 10.4 g/dL (12.0-15.5)
[2018-06-23] MEDS: PRENATAL VITAMIN W DHA CAPSULE PO SCH (09:58)
[2018-06-23] MEDS: DOCUSATE SODIUM 100 MG CAPSULE PO SCH ×2 (09:59→18:53)
[2018-06-23] MEDS: OXYCODONE-ACETAMINOPHEN 5-325 MG TABLET PO PRN ×2 (10:00→18:59)
--- NOTE | 2018-06-23 10:21 | PDOC PROGRESS REPORT ---
Subjective-OB Progress Note for:: 06/23/18 Subjective: reports bleeding slowing, pain controlled with current meds, denies needs, reports passing gas Physical Exam (OB) Vital Signs: Temp Pulse Resp BP Pulse Ox 98.0 F 71 15 110/59 L 100 06/23/18 07:24 06/23/18 07:24 06/23/18 07:24 06/23/18 07:24 06/23/18 07:24 Intake & Output 06/22/18 06/23/18 06/24/18 06:59 06:59 06:59 Intake Total 738 Output Total 2450 Balance -1712 Weight 94.35 kg - Dressing Removed: No - opsite in place Incision: Dressing, Well Approximated Closure Type: op site - Abdomen Description: Soft, Round Hernia Present: No Fundal Description: Firm, Midline Fundal Height: u/u - u/2 - Abdominal Distension: No distension Tenderness: Nontender - Extremities Lower extremities: Alicia's sign - neg Calf: Normal, Nontender Objective-Diagnostic Laboratory: 06/23/18 06:34 06/23/18 06:34 WBC 11.7 H RBC 3.43 L Hgb 10.4 L D Hct 30.8 L MCV 90 MCH 30.3 MCHC 33.8 RDW 13.8 Plt Count 226 Assessment and Plan(PN) - Assessment and Plan (1) Delivery by elective caesarean section Is this a current diagnosis for this admission?: Yes - Time Spent with Patient Time with patient: Less than 15 minutes Medications reviewed and adjusted accordingly: Yes - Disposition Anticipated Discharge: Home Within: within 24 hours
[2018-06-23] MEDS: IBUPROFEN 800 MG TABLET PO SCH (18:52)
[2018-06-24] MEDS: IBUPROFEN 800 MG TABLET PO SCH ×2 (00:08→05:42)
[2018-06-24] MEDS: OXYCODONE-ACETAMINOPHEN 5-325 MG TABLET PO PRN (05:41)
--- NOTE | 2018-06-24 08:46 | PDOC DISCHARGE SUMMARY ---
Final Diagnosis Discharge Date: 06/24/18 - Final Diagnosis (1) Delivery by elective caesarean section Is this a current diagnosis for this admission?: Yes Discharge Data - Discharge Medication Prescriptions: Ibuprofen [Motrin 800 mg Tablet] 800 mg PO Q8 #60 tablet Oxycodone HCl/Acetaminophen [Percocet 5-325 mg Tablet] 1 tab PO Q4HP PRN #30 tablet PRN Reason: Home Medications: Pnv,Calcium 72/Iron/Folic Acid [ Vitamin Plus Low Iron] 1 tab PO DAILY 02/26/17 Albuterol Sulfate [Proventil Hfa] 1 puff PO DAILY PRN 06/20/17 Docusate Sodium [Colace 100 mg Capsule] 100 mg PO BID capsule 06/24/18 Ibuprofen [Motrin 800 mg Tablet] 800 mg PO Q8 #60 tablet 06/24/18 Oxycodone HCl/Acetaminophen [Percocet 5-325 mg Tablet] 1 tab PO Q4HP PRN #30 tablet 06/24/18 Procedures: NST Intrapartum Procedure(s): : Low Cervical, Transverse - Diagnosis Test Laboratory: Temp Pulse Resp BP Pulse Ox 98.3 F 84 18 140/79 H 99 06/24/18 04:08 06/24/18 04:08 06/24/18 04:08 06/24/18 04:08 06/24/18 04:08 06/21/18 06/21/18 06/23/18 09:55 10:00 06:34 RBC 4.25 3.43 L Hgb 12.9 10.4 L D Hct 37.7 30.8 L Urine Opiates Screen NEGATIVE - Discharge information/Instructions Discharge Activity: Balance Activity w/Rest, No Lifting/Push/Pulling, Pelvic Rest, No tub bath Discharge Diet: Regular Disposition: HOME, SELF-CARE Follow up with: [facility] in: 1, Weeks
[2018-06-24] MEDS: DOCUSATE SODIUM 100 MG CAPSULE PO SCH (10:09)
[2018-06-24] MEDS: PRENATAL VITAMIN W DHA CAPSULE PO SCH (10:09)
[2018-06-24 11:45] VITALS: BP 119/64
== END 2018-06-24 13:00 | disposition home or self-care (01) | DRG 785 ==
LOC: 2S 05:59
PROVIDERS: ADMIT Obstetrics & Gynecology; ATTEND Obstetrics & Gynecology
PROC: 0UB70ZZ Excision of Bilateral Fallopian Tubes, Open Approach (ICD-10-PCS; 2018-06-22)
PROC: 10D00Z1 Extraction of Products of Conception, Low, Open Approach (ICD-10-PCS; principal; 2018-06-22 09:15)
DX: O34.211 Maternal care for low transverse scar from previous cesarean delivery (principal); Z30.2 Encounter for sterilization; O99.334 Smoking (tobacco) complicating childbirth; F17.200 Nicotine dependence, unspecified, uncomplicated; Z88.2 Allergy status to sulfonamides; Z88.0 Allergy status to penicillin; Z3A.39 39 weeks gestation of pregnancy; Z37.0 Single live birth
CPT/HCPCS: 1961; 36415; 59025; 80307; 81001; 85025; 85027; 86850; 86900; 86901; 88302; 94799; J0131; J1885; J2210; J2270; J2405; J2550; J2590; J2704; J3010; J3490; J7120

== ENCOUNTER 2019-11-26 19:08 | Observation (INO) | payer MEDICAID ==
[2019-11-26] MEDS ORDERED: NORMAL SALINE 1000 ML 1,000 ML IV ONE (20:52)
[2019-11-26] MEDS ORDERED: MORPHINE SULFATE 10 MG/ML INJ IV ONE (20:52)
[2019-11-26] MEDS ORDERED: ACETAMINOPHEN 325 MG TABLET PO ONE (20:53)
--- NOTE | 2019-11-26 20:58 | ER Document Report ---
ED General - General Chief Complaint: Shortness Of Breath Stated Complaint: DIFFICULTY BREATHING Notes: 24-year-old female no significant past medical history presents with shortness of breath and pain in posterior upper back for approximately 2 days. Patient says she has had a cough productive of nonbloody white/yellow sputum for approximately 1 week. Patient denies any fever, asthma history, smoking history, trauma, chest pain, sick contacts, immune compromise, recent hospitalizations, diabetes history, HIV history, prior medical eval, lower extremity edema or pain, recent trauma/surgery/immobilization/travel, DVT/PE/hypercoagulability history in self or family, cancer history, hemoptysis, exogenous estrogen therapy/recent TRAVEL OUTSIDE OF THE [place] IN LAST 30 DAYS: No - Related Data Allergies/Adverse Reactions: Penicillins Allergy (Severe, Verified 11/26/19 20:25) Swelling of tongue Cephalosporins Allergy (Mild, Verified 11/26/19 20:25) Hives Sulfa (Sulfonamide Antibiotics) Allergy (Mild, Verified 11/26/19 20:25) Hives amoxicillin trihydrate [From Augmentin] Allergy (Verified 11/26/19 20:25) rash cefaclor [From Ceclor] Allergy (Verified 11/26/19 20:25) rash codeine [Codeine] Allergy (Verified 11/26/19 20:25) rash Potassium Clavulanate * [From Augmentin] Allergy (Verified 11/26/19 20:25) rash Past Medical History - General Information source: Patient - Social History Smoking Status: Never Smoker Chew tobacco use (# tins/day): No Frequency of alcohol use: Rare Drug Abuse: None Family History: Reviewed & Not Pertinent Patient has homicidal ideation: No - Past Medical History Cardiac Medical History: Reports: Hx Hypertension - WITH FIRST Denies: Hx Pulmonary Embolism, Hx Heart Murmur Pulmonary Medical History: Reports: Hx Asthma - childhood Denies: Hx Sleep Apnea, Hx Tuberculosis Neurological Medical History: Reports: Hx Migraine. Denies: Hx Cerebrovascular Accident, Hx Seizures Endocrine Medical History: Denies: Hx Hyperthyroidism, Hx Hypothyroidism Renal/ Medical History: Denies: Hx Kidney Stones, Hx Ovarian Cysts, Hx Peritoneal Dialysis, Hx Pelvic Inflammatory Disease Malignancy Medical History: Denies: Hx Breast Cancer, Hx Cervical Cancer, Hx Ovarian Cancer GI Medical History: Reports: Hx Gastroesophageal Reflux Disease. Denies: Hx Hiatal Hernia, Hx Ulcer Musculoskeletal Medical History: Denies Hx Fibromyalgia Psychiatric Medical History: Denies: Hx Bipolar Disorder, Hx Depression, Hx Post Traumatic Stress Disorder, Hx Schizophrenia Traumatic Medical History: Denies: Hx Fractures Infectious Medical History: Denies: Hx HIV Past Surgical History: Reports: Hx Section - x 1 on 04/23/12, Hx Tubal Ligation - Immunizations Immunizations up to date: Yes Hx Diphtheria, Pertussis, Tetanus Vaccination: Yes - given today Review of Systems - Review of Systems Notes: REVIEW OF SYSTEMS: CONSTITUTIONAL : Denies fever, chills, or sweats. EENT: Denies recent sinus symptoms, denies throat pain CARDIOVASCULAR: Denies chest pain, MYAH RESPIRATORY: + cough, + shortness of breath. GASTROINTESTINAL: Denies abdominal pain, nausea/vomiting. GENITOURINARY: Denies difficulty urinating, painful urination. FEMALE GENITOURINARY: Denies abnormal vaginal bleeding, vaginal discharge. MUSCULOSKELETAL: Denies neck pain, +back pain. SKIN: Denies rash or skin lesions. HEMATOLOGIC : Denies easy bruising or bleeding. LYMPHATIC: Denies swollen, enlarged glands. NEUROLOGICAL: Denies headache, denies change in gait. PSYCHIATRIC: Denies anxiety or stress or depression. Physical Exam - Vital signs Vitals: Temp 98.7 F 11/26/19 19:08 - Notes Notes: PHYSICAL EXAMINATION: GENERAL: Well-nourished, uncomfortable appearing but nontoxic with no acute distress HEAD: Atraumatic, normocephalic. EYES: Pupils equal round and appropriate constriction, sclera anicteric, conjunctiva are normal. ENT: nares patent, moist mucous membranes. NECK/BACK: Normal range of motion, supple without lymphadenopathy, no midline spinal tenderness, normal inspection, no tenderness to palpation over the lateral lower posterior ribs where patient is having pain, no rash, no edema LUNGS: Very mild tachypnea, normal respiratory effort, no accessory muscle use, speaking in full sentences, left lung clear to auscultation, right lung decreased breath sounds over lower lung mckeon HEART: Borderline tachycardia with regular rhythm, no murmurs rubs or gallops ABDOMEN: Soft, nontender, no guarding, no masses, no CVAT EXTREMITIES: Normal range of motion, no pitting or edema. No cyanosis. NEUROLOGICAL: Awake, alert, conversing appropriately, moves all extremities spontaneously. PSYCH: Normal mood, normal affect. SKIN: Warm, Dry, normal turgor, no rashes or lesions noted. Course - Re-evaluation Re-evalutation: 11/26/19 20:57 Decreased breath sounds on right concerning for likely consolidation, however given pleuritic pain and tachycardia will send dimer to rule out PE. Will obtain COVID swab, ECG, d-dimer, chest x-ray, give symptomatic control and hydration, and reassess, likely DC on antibiotics with PCP follow-up The patient was evaluated during the global COVID-19 pandemic and that diagnosis was suspected/considered upon their initial presentation. Their evaluation, treatment and testing was consistent with current guidelines for patients who present with complaints or symptoms that may be related to COVID-19. 11/27/19 01:12 Patient had mildly positive d-dimer so CTA was obtained which showed segmental and subsegmental PEs on the right side with pulmonary infarct which explains patient's symptoms. Patient's mild tachycardia on arrival has resolved and patient's vital signs have been stable throughout ED evaluation and treatment. I ordered EKG, troponin, BNP to assess for right heart strain but low suspicion given patient's clinical picture. Ordered first dose of Lovenox and discussed patient with Dr. Correa who has accepted patient to medical floor. I informed patient of diagnosis. No known provoking factors for PE - Vital Signs Vital signs: Temp Pulse Resp BP Pulse Ox 98.4 F 85 16 114/62 100 11/27/19 03:06 11/27/19 03:06 11/27/19 03:06 11/27/19 03:06 11/27/19 03:06 - Laboratory Result Diagrams: 11/26/19 21:08 11/26/19 21:08 Laboratory results interpreted by me: 11/26/19 11/26/19 11/26/19 21:08 21:08 21:08 WBC 15.2 H RDW 14.1 H Lymph % (Auto) 12.7 L Absolute Neuts (auto) 11.5 H Absolute Monos (auto) 1.6 H D-Dimer 0.52 H BUN 4 L - EKG Interpretation by Me Additional EKG results interpreted by me: 11/27/19 05:00 Heart rate 82, sinus rhythm, no significant ST elevation or depressions, no signs of right heart strain, QTc 439 Discharge - Discharge Clinical Impression: Pulmonary embolism Qualifiers: Pulmonary embolism type: unspecified Chronicity: acute Acute cor pulmonale presence: without acute cor pulmonale Qualified Code(s): I26.99 - Other pulmonary embolism without acute cor pulmonale Disposition: ADMITTED INPATIENT Admitting Provider: Sunny (Hospitalist) Unit Admitted: Medical Floor
[2019-11-26 21:27] LABS: ABSOLUTE BASOPHILS # (AUTO) 0.1 10^3/uL (0.0-0.2); ABSOLUTE EOSINOPHILS # (AUTO) 0.1 10^3/uL (0.0-0.6); ABSOLUTE LYMPHOCYTES (AUTO) 1.9 10^3/uL (0.5-4.7); ABSOLUTE MONOCYTES (AUTO) 1.6 10^3/uL (0.1-1.4); ABSOLUTE NEUT (AUTO) 11.5 10^3/uL (1.7-8.2); BASOPHILS % (AUTO) 0.5 % (0-2); EOSINOPHILS % (AUTO) 0.8 % (0-6); HEMATOCRIT 41.4 % (36.0-47.0); HEMOGLOBIN 13.9 g/dL (12.0-15.5); LYMPHOCYTES % (AUTO) 12.7 % (13-45); MEAN CORPUSCULAR HEMOGLOBIN 30.8 pg (27.0-33.4); MEAN CORPUSCULAR HGB CONC 33.5 g/dL (32.0-36.0); MEAN CORPUSCULAR VOLUME 92 fl (80-97); MONOCYTES % (AUTO) 10.3 % (3-13); PLATELET COUNT 401 10^3/uL (150-450); RED CELL DISTRIBUTION WIDTH 14.1 % (11.5-14.0); SEGMENTED NEUTROPHILS % (AUTO) 75.7 % (42-78); TOTAL CELLS COUNTED % (AUTO) 100 %; WHITE BLOOD COUNT 15.2 10^3/uL (4.0-10.5)
[2019-11-26 21:37] LABS: ALBUMIN 4.5 g/dL (3.5-5.0); ALKALINE PHOSPHATASE 81 U/L (38-126); ANION GAP 9 (5-19); ASPARTATE AMINO TRANSFERASE 22 U/L (14-36); BILIRUBIN,DIRECT 0.3 mg/dL (0.0-0.4); BILIRUBIN,TOTAL 0.9 mg/dL (0.2-1.3); BLOOD UREA NITROGEN 4 mg/dL (7-20); CALCIUM 9.8 mg/dL (8.4-10.2); CARBON DIOXIDE 26 mmol/L (22-30); CHLORIDE 103 mmol/L (98-107); GLUCOSE 102 mg/dL (75-110); POTASSIUM 4.4 mmol/L (3.6-5.0); TOTAL PROTEIN 7.6 g/dL (6.3-8.2)
--- NOTE | 2019-11-26 21:51 | RADIOLOGY REPORT (SQ) ---
EXAM DESCRIPTION: XR CHEST 1 VIEW COMPLETED DATE/TME: 11/26/2019 20:50 CLINICAL HISTORY: 24 years Female right CP cough COMPARISON: None. FINDINGS: The cardiomediastinal silhouette appears unremarkable. There is density in the inferior and lateral aspect of the right chest concerning for pneumonia. No pneumothorax. IMPRESSION: Density in the lateral inferior right chest concerning for pneumonia
[2019-11-26] MEDS ORDERED: AZITHROMYCIN 250 MG TABLET PO ONE (22:54)
--- NOTE | 2019-11-27 00:41 | RADIOLOGY REPORT (SQ) ---
CLINICAL HISTORY: sob, right back pain, positive D-dimer 0.52, HCG NEG COMPARISON: None. TECHNIQUE: CT CHEST ANGIOGRAPHY WITHOUT THEN WITH IV CONTRAST on 11/26/2019 10:53 PM CDT. MIPS reconstructions were generated. This exam was performed according to our departmental dose-optimization program, which includes automated exposure control, adjustment of the mA and/or kV according to patient size and/or use of iterative reconstruction technique. MIP images were generated. FINDINGS: Thoracic aorta is normal in course and caliber without aneurysm or dissection. There are filling defects within the segmental and subsegmental branches of the anterior right basilar portion of the right lower lobe pulmonary artery. The heart is normal in size. There is no pericardial effusion. Intrathoracic lymph nodes are not enlarged. There is a small right pleural effusion. There is a small to moderate area of pulmonary infarct involving the anterior and lateral segments of the right lower lobe. Central airways are patent. Lungs are clear with no consolidation, mass or interstitial lung disease. There are no acute abnormalities within the limited images of the upper abdomen. There are no acute osseous findings. No suspicious bony lesions. IMPRESSION: Right lower lobe pulmonary emboli with associated effusion and pulmonary infarcts.
[2019-11-27] MEDS ORDERED: MORPHINE SULFATE 10 MG/ML INJ IV STA (01:04)
[2019-11-27] MEDS ORDERED: ENOXAPARIN SODIUM INJ 80 MG/0.8 ML DISP.SYRIN SUBCUT ONE (01:05)
[2019-11-27] MEDS ORDERED: MAGNESIUM HYDROXIDE SUSP 30 ML UDCUP PO PRN (01:20)
[2019-11-27] MEDS ORDERED: MAG HYDROX/AL HYDROX/SIMETH SUSP 30 ML UDCUP PO PRN (01:20)
[2019-11-27 01:24] LABS: NT PRO BNP 57 pg/mL (<125)
[2019-11-27 01:28] LABS: TROPONIN I < 0.012 ng/mL
[2019-11-27] MEDS ORDERED: NICOTINE 21 MG/24 HR PATCH.TD24 TD PRN (01:29)
[2019-11-27] MEDS ORDERED: MORPHINE SULFATE 10 MG/ML INJ IV PRN ×2 (01:29→01:39)
[2019-11-27] MEDS ORDERED: MELATONIN 5 MG TABLET PO PRN (01:29)
[2019-11-27] MEDS ORDERED: ACETAMINOPHEN 325 MG TABLET PO PRN (01:29)
[2019-11-27] MEDS ORDERED: LORAZEPAM INJ 2 MG/1 ML VIAL IV PRN (01:29)
[2019-11-27] MEDS ORDERED: APIXABAN 5 MG TABLET PO ONE (01:45)
[2019-11-27] MEDS ORDERED: LEVALBUTEROL HCL NEB 0.63 MG/3 ML AMPUL NEB PRN (01:57)
[2019-11-27] MEDS: GUAIFENESIN SYRP 200 MG/10 ML UDC PO PRN ×2 (03:21→08:24)
[2019-11-27] MEDS: MORPHINE SULFATE 10 MG/ML INJ IV PRN ×3 (03:21→21:45)
[2019-11-27] MEDS: ONDANSETRON HCL INJ/PF 4 MG/2 ML SDV IV PRN ×2 (03:27→21:45)
[2019-11-27 06:11] LABS: HEMATOCRIT 37.2 % (36.0-47.0); HEMOGLOBIN 12.3 g/dL (12.0-15.5); MEAN CORPUSCULAR HEMOGLOBIN 30.5 pg (27.0-33.4); MEAN CORPUSCULAR HGB CONC 32.9 g/dL (32.0-36.0); MEAN CORPUSCULAR VOLUME 93 fl (80-97); PLATELET COUNT 317 10^3/uL (150-450); RED BLOOD COUNT 4.01 10^6/uL (3.72-5.28); RED CELL DISTRIBUTION WIDTH 13.7 % (11.5-14.0); WHITE BLOOD COUNT 11.4 10^3/uL (4.0-10.5)
[2019-11-27 06:13] LABS: ANION GAP 8 (5-19); BLOOD UREA NITROGEN 4 mg/dL (7-20); CARBON DIOXIDE 23 mmol/L (22-30); CHLORIDE 105 mmol/L (98-107); GLUCOSE 109 mg/dL (75-110); POTASSIUM 4.4 mmol/L (3.6-5.0)
--- NOTE | 2019-11-27 06:39 | PDOC H&P ---
History of Present Illness Admission Date/PCP: 11/27/2019 01:32 JONELLE KIDD MD Patient complains of: Pleuritic pain History of Present Illness: MARVIN BAEZ is a 24 year old female who presented the emergency room with a 2-day history of pleuritic pain. She admits developing an intermittent moderately severe nonradiating sharp pain in her left upper back over the course of the last 2 days. The pain is associated with a cough productive of small amounts of whitish mucus for the last week. The pain is exacerbated by coughing. Her pain is accompanied by mild dyspnea with exertion. She denies additional associated or accompanying signs and symptoms. She denies prior similar episodes. She denies identification of any additional aggravating or ameliorating factors for her pain. In the emergency room she was found to have a small to moderate area of pulmonary infarction in the right middle lobe due to pulmonary emboli. 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 Dr. Sánchez has been consulted. Past Medical History Cardiac Medical History: Reports: Hypertension - -induced hypertension with first child Denies: Coronary Artery Disease, Pulmonary Embolism, Heart Murmur Pulmonary Medical History: Reports: Asthma - In her childhood Denies: Sleep Apnea, Tuberculosis EENT Medical History: Denies: Cataracts, Ears - Hearing aids Neurological Medical History: Reports: Migraine Denies: Multiple Sclerosis, Seizures Endocrine Medical History: Denies: Diabetes Mellitus Type 1, Hyperthyroidism, Hypothyroidism Renal/ Medical History: Denies: Chronic Kidney Disease, Nephrolithiasis Malignancy Medical History: Reports: None GI Medical History: Reports: Gastroesophageal Reflux Disease Denies: Cirrhosis, Crohn's Disease, Hepatitis, Hiatal Hernia, Peptic Ulcer Disease, Ulcerative Colitis Musculoskeltal Medical History: Denies: Arthritis, Fibromyalgia, Gout Skin Medical History: Denies: Eczema, Psoriasis Psychiatric Medical History: Denies: Alcohol Dependency, Bipolar Disorder, Depression, Post Traumatic Stress Disorder, Substance Abuse, Tobacco Dependency Traumatic Medical History: Reports: None Hematology: Denies: Anemia, Bleeding Tendencies Infectious Medical History: Reports: None Past Surgical History Past Surgical History: Reports: Section - x 4, Tubal Ligation Social History Information Source: Patient Lives with: Family Smoking Status: Former Smoker Electronic Cigarette use?: No Frequency of Alcohol Use: Rare Hx Recreational Drug Use: No Drugs: None Hx Prescription Drug Abuse: No - Advance Directive Resuscitation Status: Full Code Surrogate healthcare decision maker:: Dayananai Baez Family History Family History: CAD, DM, Malignancy, Other Parental Family History Reviewed: Yes Children Family History Reviewed: No Sibling(s) Family History Reviewed.: Yes Medication/Allergy Home Medications: Pnv,Calcium 72/Iron/Folic Acid [ Vitamin Plus Low Iron] 1 tab PO DAILY 1 04/29/16 Albuterol Sulfate [Proventil Hfa] 1 puff PO DAILY PRN 06/20/17 Docusate Sodium [Colace 100 mg Capsule] 100 mg PO BID capsule 06/24/18 Ibuprofen [Motrin 800 mg Tablet] 800 mg PO Q8 #60 tablet 06/24/18 Oxycodone HCl/Acetaminophen [Percocet 5-325 mg Tablet] 1 tab PO Q4HP PRN #30 tablet 06/24/18 Allergies/Adverse Reactions: Penicillins Allergy (Severe, Verified 11/26/19 20:25) Swelling of tongue Cephalosporins Allergy (Mild, Verified 11/26/19 20:25) Hives Sulfa (Sulfonamide Antibiotics) Allergy (Mild, Verified 11/26/19 20:25) Hives amoxicillin trihydrate [From Augmentin] Allergy (Verified 11/26/19 20:25) rash cefaclor [From Ceclor] Allergy (Verified 11/26/19 20:25) rash codeine [Codeine] Allergy (Verified 11/26/19 20:25) rash Potassium Clavulanate * [From Augmentin] Allergy (Verified 11/26/19 20:25) rash Review of Systems Constitutional: ABSENT: chills, fever(s) Eyes: ABSENT: visual disturbances, other - Eye pain Ears: ABSENT: hearing changes, other - Ear pain Nose, Mouth, and Throat: ABSENT: headache(s), sore throat Cardiovascular: PRESENT: as per HPI, chest pain, dyspnea on exertion. ABSENT: palpitations Respiratory: PRESENT: as per HPI, cough, sputum. ABSENT: hemoptysis Gastrointestinal: ABSENT: abdominal pain, constipation, diarrhea, nausea, vomiting Genitourinary: ABSENT: dysuria, hematuria Musculoskeletal: PRESENT: as per HPI, back pain. ABSENT: joint swelling, muscle weakness Integumentary: ABSENT: pruritus, rash Neurological: ABSENT: confusion, convulsions, focal weakness, memory loss, syncope Psychiatric: ABSENT: anxiety, depression Endocrine: ABSENT: cold intolerance, heat intolerance Hematologic/Lymphatic: ABSENT: easy bleeding, easy bruising Allergic/Immunologic: ABSENT: seasonal rhinorrhea Physical Exam Vital Signs: Temp Pulse Resp BP Pulse Ox 99.0 F 88 16 109/62 98 11/26/19 23:12 11/26/19 23:12 11/26/19 19:26 11/26/19 23:12 11/26/19 23:12 Intake & Output 11/25/19 11/26/19 11/27/19 23:59 23:59 23:59 Intake Total 1000 Balance 1000 Weight 65.771 kg General appearance: PRESENT: no acute distress, cooperative Head exam: PRESENT: atraumatic, normocephalic Eye exam: PRESENT: conjunctiva pink. ABSENT: conjunctival injection, scleral icterus Ear exam: PRESENT: normal external ear exam. ABSENT: bleeding, drainage Mouth exam: PRESENT: dry mucosa, neck supple Neck exam: ABSENT: thyromegaly, tracheal deviation Respiratory exam: PRESENT: clear to auscultation zak, symmetrical, unlabored Cardiovascular exam: PRESENT: RRR. ABSENT: clicks, gallop, rubs Pulses: PRESENT: normal radial pulses, normal dorsalis pedis pul Vascular exam: PRESENT: normal capillary refill. ABSENT: pallor GI/Abdominal exam: PRESENT: normal bowel sounds, soft. ABSENT: tenderness Rectal exam: PRESENT: deferred Extremities exam: ABSENT: joint swelling, pedal edema Musculoskeletal exam: ABSENT: deformity, dislocation Neurological exam: PRESENT: alert, oriented to person, oriented to place, oriented to time, oriented to situation, CN II-XII grossly intact. ABSENT: motor sensory deficit Psychiatric exam: PRESENT: appropriate affect, normal mood Skin exam: PRESENT: dry, intact, warm. ABSENT: jaundice, rash, urticaria Results Laboratory Results: 11/26/19 21:08 11/26/19 21:08 11/26/19 11/26/19 11/26/19 21:08 21:08 21:08 WBC 15.2 H RBC 4.50 Hgb 13.9 Hct 41.4 MCV 92 MCH 30.8 MCHC 33.5 RDW 14.1 H Plt Count 401 Seg Neutrophils % 75.7 Sodium 138.0 Potassium 4.4 Chloride 103 Carbon Dioxide 26 Anion Gap 9 BUN 4 L Creatinine 0.69 Est GFR ( Amer) > 60 Glucose 102 Lactic Acid Calcium 9.8 Total Bilirubin 0.9 AST 22 Alkaline Phosphatase 81 Total Protein 7.6 Albumin 4.5 Serum HCG, Qual NEGATIVE 11/26/19 23:08 WBC RBC Hgb Hct MCV MCH MCHC RDW Plt Count Seg Neutrophils % Sodium Potassium Chloride Carbon Dioxide Anion Gap BUN Creatinine Est GFR ( Amer) Glucose Lactic Acid 0.7 Calcium Total Bilirubin AST Alkaline Phosphatase Total Protein Albumin Serum HCG, Qual 11/26/19 21:08 Troponin I < 0.012 NT-Pro-B Natriuret Pep 57 Impressions: Chest X-Ray 11/26/19 20:50 IMPRESSION: Density in the lateral inferior right chest concerning for pneumonia Chest/Abdomen CTA 11/26/19 22:53 IMPRESSION: Right lower lobe pulmonary emboli with associated effusion and pulmonary infarcts. Assessment and Plan - Diagnosis (1) Pulmonary embolism Qualifiers: Pulmonary embolism type: unspecified Chronicity: acute Acute cor pulmonale presence: without acute cor pulmonale Qualified Code(s): I26.99 - Other pulmonary embolism without acute cor pulmonale Is this a current diagnosis for this admission?: Yes (2) Pleuritic chest pain Is this a current diagnosis for this admission?: Yes (3) Cough Is this a current diagnosis for this admission?: Yes (4) Leukocytosis Qualifiers: Leukocytosis type: unspecified Qualified Code(s): D72.829 - Elevated white blood cell count, unspecified Is this a current diagnosis for this admission?: Yes - Plan Summary Summary: Patient will be admitted to observation status on the medical floor where she will receive routine supportive and symptomatic cares. She will be started on Eliquis 10 mg p.o. twice daily. A pulmonology consultation will be obtained with Dr. Sánchez. She will receive morphine sulfate 2 to 4 mg IV every 2 hours as needed for pain. She will receive Ativan 1 mg IV every hour as needed anxiety or restlessness. She will be on a regular diet. Discharge later today or tomorrow would be anticipated given her clinical status. - Time Time Spent with patient: Less than 15 minutes Medications reviewed and adjusted accordingly: Yes Anticipated Discharge Disposition: Home, Self Care Anticipated Discharge Timeframe: within 36 hours - Inpatient Certification Based on my medical assessment, after consideration of the patient's comorbidities, presenting symptoms, or acuity I expect that the services needed warrant INPATIENT care.: No I certify that my determination is in accordance with my understanding of Medicare's requirements for reasonable and necessary INPATIENT services [42 CFR 412.3e].: No
[2019-11-27] MEDS: DOCUSATE SODIUM 100 MG CAPSULE PO SCH ×2 (09:19→18:08)
[2019-11-27] MEDS: FAMOTIDINE 20 MG TABLET PO SCH ×2 (09:19→22:00)
[2019-11-27] MEDS ORDERED: KETOROLAC TROMETHAMINE INJ/PF 30 MG/1 ML SDV IV ONE (10:01)
--- NOTE | 2019-11-27 11:22 | PDOC PROGRESS REPORT ---
Subjective Progress Note for:: 11/27/19 Subjective:: Patient is sitting up right in bed. She complains of a throbbing pain in the posterior upper back that occasionally radiates under her breast with associated shortness of breath, and occasional cough. She did experience one episode of hemoptysis earlier this morning. Her pain is exacerbated with movement. . Patient otherwise denies fever, chills, generalized weakness, headache, altered vision, altered speech, palpitations, abdominal pain, nausea vomiting diarrhea, lower extremity swelling. Discussed patient with nurse, nurse states that patient was satting at 91 put on 2 L of oxygen nasal cannula and was given morphine for pain. Reason For Visit: ACUTE PULMONARY EMBOLISM Physical Exam Vital Signs: Temp Pulse Resp BP Pulse Ox 99.1 F 97 16 106/59 L 100 11/27/19 07:36 11/27/19 09:14 11/27/19 09:14 11/27/19 07:36 11/27/19 09:14 Intake & Output 11/26/19 11/27/19 11/28/19 06:59 06:59 06:59 Intake Total 1221 Output Total 400 Balance 821 Weight 79.1 kg General appearance: PRESENT: no acute distress, cooperative, well-developed, well-nourished Head exam: PRESENT: atraumatic, normocephalic Eye exam: PRESENT: EOMI, PERRLA. ABSENT: scleral icterus Ear exam: PRESENT: normal external ear exam. ABSENT: bleeding, drainage Mouth exam: PRESENT: dry mucosa, tongue midline Neck exam: PRESENT: full ROM. ABSENT: lymphadenopathy, tenderness, thyromegaly Respiratory exam: PRESENT: decreased breath sounds - over right lower lung, unlabored. ABSENT: accessory muscle use, tachypnea Cardiovascular exam: PRESENT: RRR, +S1, +S2. ABSENT: diastolic murmur, gallop, rubs, systolic murmur Pulses: PRESENT: normal radial pulses GI/Abdominal exam: PRESENT: normal bowel sounds. ABSENT: ascites, distended, tenderness Rectal exam: PRESENT: deferred Extremities exam: PRESENT: full ROM. ABSENT: calf tenderness, pedal edema Musculoskeletal exam: PRESENT: ambulatory, full ROM Neurological exam: PRESENT: alert, awake, oriented to person, oriented to place, oriented to time, CN II-XII grossly intact Psychiatric exam: PRESENT: appropriate affect, normal mood Skin exam: PRESENT: dry, intact, normal color, warm. ABSENT: erythema, rash Results Laboratory Results: 11/27/19 05:13 11/27/19 05:13 11/26/19 11/26/19 11/26/19 21:08 21:08 21:08 WBC 15.2 H RBC 4.50 Hgb 13.9 Hct 41.4 MCV 92 MCH 30.8 MCHC 33.5 RDW 14.1 H Plt Count 401 Seg Neutrophils % 75.7 Sodium 138.0 Potassium 4.4 Chloride 103 Carbon Dioxide 26 Anion Gap 9 BUN 4 L Creatinine 0.69 Est GFR ( Amer) > 60 Glucose 102 Lactic Acid Calcium 9.8 Total Bilirubin 0.9 AST 22 Alkaline Phosphatase 81 Total Protein 7.6 Albumin 4.5 Serum HCG, Qual NEGATIVE 11/26/19 11/27/19 11/27/19 23:08 05:13 05:13 WBC 11.4 H RBC 4.01 Hgb 12.3 Hct 37.2 MCV 93 MCH 30.5 MCHC 32.9 RDW 13.7 Plt Count 317 Seg Neutrophils % Sodium 135.9 L Potassium 4.4 Chloride 105 Carbon Dioxide 23 Anion Gap 8 BUN 4 L Creatinine 0.69 Est GFR ( Amer) > 60 Glucose 109 Lactic Acid 0.7 Calcium 9.0 Total Bilirubin AST Alkaline Phosphatase Total Protein Albumin Serum HCG, Qual 11/26/19 21:08 Troponin I < 0.012 NT-Pro-B Natriuret Pep 57 Impressions: Chest X-Ray 11/26/19 20:50 IMPRESSION: Density in the lateral inferior right chest concerning for pneumonia Chest/Abdomen CTA 11/26/19 22:53 IMPRESSION: Right lower lobe pulmonary emboli with associated effusion and pulmonary infarcts. Assessment and Plan - Diagnosis (1) Pulmonary embolism Qualifiers: Pulmonary embolism type: other Chronicity: acute Acute cor pulmonale presence: without acute cor pulmonale Qualified Code(s): I26.99 - Other pu lmonary embolism without acute cor pulmonale Is this a current diagnosis for this admission?: Yes (2) Pleuritic chest pain Is this a current diagnosis for this admission?: Yes (3) Cough Is this a current diagnosis for this admission?: Yes (4) Leukocytosis Qualifiers: Leukocytosis type: unspecified Qualified Code(s): D72.829 - Elevated white blood cell count, unspecified Is this a current diagnosis for this admission?: Yes - Plan Summary Summary: Ms. Joellen Baez is a 24-year-old female who presented to the emergency department on 11/26/2019 regarding 2-day history of shortness of breath and pleuritic pain located primarily to the right posterior upper back with associated non-bloody productive cough. Denies hx of DVT/PE, cancer, recent surgeries, long trips, trauma, or OCP use. She does not smoke cigarets. Family history significant for maternal grandmother with hx of DVT, otherwise denies familial thrombotic events. In the ED she was found to be tachycardic with a mildly positive d-dimer (0.52), chest x-ray notable for density in the lateral inferior right chest, and CTA notable for right lower lobe pulmonary emboli with associated effusion and pulmonary infarcts. Further investigation was conducted regarding right heart strain with EKG NSR, troponin within normal limits, and BNP within normal limits. She was subsequently treated with single dose of Lovenox and admitted to hospital service for observation and initiation of appropriate anticoagulation therapy for unprovoked pulmonary embolism. Pulmonary Embolism: Upon admission Lovenox was discontinued, Eliquis 10mg BID initiated. Will continue with Eliquis 10mg BID x7 days then 5mg BID for x6 months, as advised by Dr. Qureshi. Patient's presentation and pain level permit one more day of hospitalization for pain control. Dr. Qureshi, hematology, was consulted. Advised on no further workup during hospitalization. Recommends outpatient hematology followup for hypercoag testing and further risk assessment. F/u at his office will be arranged. Pleuritic Chest Pain: CP currently being treated with morphine with noted improvement in symptoms. Single dose of Toradol administered for anti-inflammation. Patient is to utilize Kpad for symptomatic relief. Cough: Significant relief of cough with Robitussin. She may continue to utilize Robitussin as needed. Leukocytosis: Mild leukocytosis (11.4). Suspect this is secondary to pulmonary embolism/ inflammation. Infectious etiology less likely as patient is afebrile, denies sick contacts, and no infectious process has been indicated on diagnostics thus far. - Time Time Spent with patient: 15-24 minutes Medications reviewed and adjusted accordingly: Yes Anticipated Discharge Disposition: Home, Self Care Anticipated Discharge Timeframe: within 24 hours
[2019-11-27] MEDS ORDERED: IBUPROFEN 800 MG in NORMAL SALINE 250 ML IV ONE (12:00)
--- NOTE | 2019-11-27 12:06 | PDOC CONSULTATION ---
Consultation Consult Date: 11/27/19 Attending physician:: MANAV DORANTES Provider Consulted: VALORIE KAISER Consult reason:: Idiopathic pulmonary embolism History of Present Illness Admission Date/PCP: 11/27/19 01:38 JONELLE KIDD MD Patient complains of: SOB/STEPHEN/CP History of Present Illness: This is a telemed visit. Patient was consulted today for this telemedicine visit due to the COVID-19 restrictions. Patient states understanding and consents to this telemedicine visit. Patient confirmed identity with two patient identifi ers. MARVIN MANN is a 24 year old female with recent c/o of SOB/CP that started a bout 2-3 days prior to admit, denies any recent surgeries, long trips, not on OCP, non smoker. Does have M GM who had h/o DVT but no other fam hx of thrombotic events. On present to ED had CTA chest indicating PE. Admitted now on eliquis. Being r/o for COVID also, testing pending. Past Medical History Cardiac Medical History: Reports: Hypertension - -induced hypertension with first child Denies: Coronary Artery Disease, Pulmonary Embolism, Heart Murmur Pulmonary Medical History: Reports: Asthma - In her childhood Denies: Sleep Apnea, Tuberculosis EENT Medical History: Denies: Cataracts, Ears - Hearing aids Neurological Medical History: Reports: Migraine Denies: Multiple Sclerosis, Seizures Endocrine Medical History: Denies: Diabetes Mellitus Type 1, Hyperthyroidism, Hypothyroidism Renal/ Medical History: Denies: Chronic Kidney Disease, Nephrolithiasis Malignancy Medical History: Reports: None Denies: Breast Cancer, Cervical Cancer, Ovarian Cancer GI Medical History: Reports: Gastroesophageal Reflux Disease Denies: Cirrhosis, Crohn's Disease, Hepatitis, Hiatal Hernia, Peptic Ulcer Disease, Ulcerative Colitis Musculoskeltal Medical History: Denies: Arthritis, Fibromyalgia, Gout Skin Medical History: Denies: Eczema, Psoriasis Psychiatric Medical History: Denies: Alcohol Dependency, Bipolar Disorder, Depression, Post Traumatic Stress Disorder, Substance Abuse, Tobacco Dependency Traumatic Medical History: Reports: None Hematology: Denies: Anemia, Hemophilia, Sickle Cell Disease, Bleeding Tendencies Infectious Medical History: Reports: None Denies: HIV Past Surgical History Past Surgical History: Reports: Section - x 4, Tubal Ligation Social History Information Source: Patient Lives with: Family Smoking Status: Former Smoker Electronic Cigarette use?: No Frequency of Alcohol Use: Rare Hx Recreational Drug Use: No Drugs: None Hx Prescription Drug Abuse: No - Advance Directive Resuscitation Status: Full Code Family History Family History: CAD, DM, Malignancy, Other Parental Family History Reviewed: Yes Children Family History Reviewed: Yes Sibling(s) Family History Reviewed.: Yes Medication/Allergy Home Medications: Pnv,Calcium 72/Iron/Folic Acid [ Vitamin Plus Low Iron] 1 tab PO DAILY 02/26/17 Albuterol Sulfate [Proventil Hfa] 1 puff PO DAILY PRN 06/20/17 Docusate Sodium [Colace 100 mg Capsule] 100 mg PO BID capsule 06/24/18 Ibuprofen [Motrin 800 mg Tablet] 800 mg PO Q8 #60 tablet 06/24/18 Oxycodone HCl/Acetaminophen [Percocet 5-325 mg Tablet] 1 tab PO Q4HP PRN #30 tablet 06/24/18 Allergies/Adverse Reactions: Penicillins Allergy (Severe, Verified 11/26/19 20:25) Swelling of tongue Cephalosporins Allergy (Mild, Verified 11/26/19 20:25) Hives Sulfa (Sulfonamide Antibiotics) Allergy (Mild, Verified 11/26/19 20:25) Hives amoxicillin trihydrate [From Augmentin] Allergy (Verified 11/26/19 20:25) rash cefaclor [From Ceclor] Allergy (Verified 11/26/19 20:25) rash codeine [Codeine] Allergy (Verified 11/26/19 20:25) rash Potassium Clavulanate * [From Augmentin] Allergy (Verified 11/26/19 20:25) rash Review of Systems Constitutional: PRESENT: fatigue, weakness Cardiovascular: PRESENT: chest pain, dyspnea on exertion Gastrointestinal: ABSENT: abdominal pain, constipation, diarrhea, hematemesis, hematochezia, nausea, vomiting Musculoskeletal: ABSENT: joint swelling Neurological: ABSENT: abnormal gait, abnormal speech, confusion, dizziness, focal weakness, syncope Psychiatric: ABSENT: anxiety, depression, homidical ideation, suicidal ideation Physical Exam Vital Signs: Temp Pulse Resp BP Pulse Ox 99.1 F 97 16 106/59 L 100 11/27/19 07:36 11/27/19 09:14 11/27/19 09:14 11/27/19 07:36 11/27/19 09:14 Intake & Output 11/26/19 11/27/19 11/28/19 06:59 06:59 06:59 Intake Total 1221 Output Total 400 Balance 821 Weight 79.1 kg Additional comments: Not done, telehealth visit Results Laboratory Results: 11/27/19 05:13 11/27/19 05:13 11/26/19 11/26/19 11/26/19 21:08 21:08 21:08 WBC 15.2 H RBC 4.50 Hgb 13.9 Hct 41.4 MCV 92 MCH 30.8 MCHC 33.5 RDW 14.1 H Plt Count 401 Seg Neutrophils % 75.7 Sodium 138.0 Potassium 4.4 Chloride 103 Carbon Dioxide 26 Anion Gap 9 BUN 4 L Creatinine 0.69 Est GFR ( Amer) > 60 Glucose 102 Lactic Acid Calcium 9.8 Total Bilirubin 0.9 AST 22 Alkaline Phosphatase 81 Total Protein 7.6 Albumin 4.5 Serum HCG, Qual NEGATIVE 11/26/19 11/27/19 11/27/19 23:08 05:13 05:13 WBC 11.4 H RBC 4.01 Hgb 12.3 Hct 37.2 MCV 93 MCH 30.5 MCHC 32.9 RDW 13.7 Plt Count 317 Seg Neutrophils % Sodium 135.9 L Potassium 4.4 Chloride 105 Carbon Dioxide 23 Anion Gap 8 BUN 4 L Creatinine 0.69 Est GFR ( Amer) > 60 Glucose 109 Lactic Acid 0.7 Calcium 9.0 Total Bilirubin AST Alkaline Phosphatase Total Protein Albumin Serum HCG, Qual 11/26/19 21:08 Troponin I < 0.012 NT-Pro-B Natriuret Pep 57 Impressions: Chest X-Ray 11/26/19 20:50 IMPRESSION: Density in the lateral inferior right chest concerning for pneumonia Chest/Abdomen CTA 11/26/19 22:53 IMPRESSION: Right lower lobe pulmonary emboli with associated effusion and pulmonary infarcts. Status: Image reviewed by me Assessment & Plan - Diagnosis (1) Pulmonary embolism Qualifiers: Pulmonary embolism type: other Chronicity: acute Acute cor pulmonale presence: without acute cor pulmonale Qualified Code(s): I26.99 - Other pulmonary embolism without acute cor pulmonale Is this a current diagnosis for this admission?: Yes Plan: Pt still having significant SOB/CP so will require 1 more day hospitalization for pain control. She will need outpt f/u with hematology and for hypercoag testing as outpt and further risk assessment. Agree w/ eliquis 10mg bid x 7 days then 5mg BID therafter. She will need at least 6m of anticoagulation. We will make arrangements for f/u in our office post d.c. - Time Time Spent: 50 to 70 Minutes - Inpatient Certification Based on my medical assessment, after consideration of the patient's comorbidities, presenting symptoms, or acuity I expect that the services needed warrant INPATIENT care.: Yes I certify that my determination is in accordance with my understanding of Medicare's requirements for reasonable and necessary INPATIENT services [42 CFR 412.3e].: Yes Medical Necessity: Need For Continuous Telemetry Monitoring, Need for Nebulizer Therapy and Monitoring of Response, Need for Pain Control
--- NOTE | 2019-11-27 13:27 | PDOC CONSULTATION ---
Consultation Consult Date: 11/27/19 Attending physician:: PASTOR JOSEPH Provider Consulted: PO SNEED Consult reason:: pulmonary embolus History of Present Illness Admission Date/PCP: 11/27/19 01:38 JONELLE KIDD MD History of Present Illness: MARVIN MANN is a 24 year old female sent to the emergency room with 3 days of increasing cough and shortness of breath initially was no hemoptysis but upon admit to entering the emergency room some of the cough was blood-streaked. Denies prior history of cough sputum production PPD is negative dates unknown no history of chronic lung disease as a child or adolescent. He admits exposure to passive smoke as a child but not as an adult she herself has . she has self smoked for 1 year. She has no pets no recent travel no significant occupational history she does have a family history of having deep multiple DVTs in her grandmother. She denies angina-like chest pain but admits to some sharp right- sided inspiratory chest pain. Sleeps on 2 pillows usually no PND no nocturnal cough no edema. She is unaware of any snoring, restless sleep unrestful sleep or excessive daytime somnolence. Past Medical History Cardiac Medical History: Reports: Hypertension - -induced hypertension with first child Denies: Coronary Artery Disease, Pulmonary Embolism, Heart Murmur Pulmonary Medical History: Reports: Asthma - In her childhood Denies: Sleep Apnea, Tuberculosis EENT Medical History: Denies: Cataracts, Ears - Hearing aids Neurological Medical History: Reports: Migraine Denies: Multiple Sclerosis, Seizures Endocrine Medical History: Denies: Diabetes Mellitus Type 1, Hyperthyroidism, Hypothyroidism Renal/ Medical History: Denies: Chronic Kidney Disease, Nephrolithiasis Malignancy Medical History: Reports: None Denies: Breast Cancer, Cervical Cancer, Ovarian Cancer GI Medical History: Reports: Gastroesophageal Reflux Disease Denies: Cirrhosis, Crohn's Disease, Hepatitis, Hiatal Hernia, Peptic Ulcer Disease, Ulcerative Colitis Musculoskeltal Medical History: Denies: Arthritis, Fibromyalgia, Gout Skin Medical History: Denies: Eczema, Psoriasis Psychiatric Medical History: Denies: Alcohol Dependency, Bipolar Disorder, Depression, Post Traumatic Stress Disorder, Substance Abuse, Tobacco Dependency Traumatic Medical History: Reports: None Hematology: Denies: Anemia, Hemophilia, Sickle Cell Disease, Bleeding Tendencies Infectious Medical History: Reports: None Denies: HIV Past Surgical History Past Surgical History: Reports: Section - x 4, Tubal Ligation Social History Information Source: Patient, [facility] Lives with: Family Smoking Status: Former Smoker Passive smoke exposure as: Child Frequency of Alcohol Use: Rare Hx Recreational Drug Use: No Drugs: None Hx Prescription Drug Abuse: No Do you have pets?: No Have you had any respiratory illnesses as a child?: Yes Have you been exposed to any sick contacts recently?: No Have you had any recent respiratory illnesses?: No Have you travelled outside of [place] in the past 12 months?: No - Advance Directive Resuscitation Status: Full Code Family History Family History: CAD, DM, Malignancy, Other - History of DVTs Parental Family History Reviewed: Yes Children Family History Reviewed: Yes Sibling(s) Family History Reviewed.: Yes Medication/Allergy Home Medications: Pnv,Calcium 72/Iron/Folic Acid [ Vitamin Plus Low Iron] 1 tab PO DAILY 02/26/17 Albuterol Sulfate [Proventil Hfa] 1 puff PO DAILY PRN 06/20/17 Docusate Sodium [Colace 100 mg Capsule] 100 mg PO BID capsule 06/24/18 Ibuprofen [Motrin 800 mg Tablet] 800 mg PO Q8 #60 tablet 06/24/18 Oxycodone HCl/Acetaminophen [Percocet 5-325 mg Tablet] 1 tab PO Q4HP PRN #30 tablet 06/24/18 Allergies/Adverse Reactions: Penicillins Allergy (Severe, Verified 11/26/19 20:25) Swelling of tongue Cephalosporins Allergy (Mild, Verified 11/26/19 20:25) Hives Sulfa (Sulfonamide Antibiotics) Allergy (Mild, Verified 11/26/19 20:25) Hives amoxicillin trihydrate [From Augmentin] Allergy (Verified 11/26/19 20:25) rash cefaclor [From Ceclor] Allergy (Verified 11/26/19 20:25) rash codeine [Codeine] Allergy (Verified 11/26/19 20:25) rash Potassium Clavulanate * [From Augmentin] Allergy (Verified 11/26/19 20:25) rash Review of Systems All systems: reviewed and no additional remarkable complaints except as stated Physical Exam Vital Signs: Temp Pulse Resp BP Pulse Ox 99.1 F 97 16 106/59 L 100 11/27/19 07:36 11/27/19 09:14 11/27/19 09:14 11/27/19 07:36 11/27/19 09:14 Intake & Output 11/26/19 11/27/19 11/28/19 06:59 06:59 06:59 Intake Total 1221 Output Total 400 Balance 821 Weight 79.1 kg General appearance: PRESENT: cooperative, disheveled, mild distress, well- developed, well-nourished Head exam: PRESENT: atraumatic, normocephalic Eye exam: PRESENT: conjunctiva pale, EOMI. ABSENT: nystagmus, periorbital swelling, scleral icterus Mouth exam: PRESENT: dry mucosa, neck supple, tongue midline Neck exam: ABSENT: carotid bruit, JVD, lymphadenopathy, meningismus, thyromegaly, tracheostomy Respiratory exam: PRESENT: decreased breath sounds, rales, rhonchi, symmetrical, other - Point tenderness/sensitivity to touch right hemithorax. ABSENT: tachypnea, unlabored Cardiovascular exam: PRESENT: RRR, +S1, +S2. ABSENT: rubs, systolic murmur Pulses: PRESENT: normal radial pulses Vascular exam: PRESENT: normal capillary refill GI/Abdominal exam: PRESENT: soft. ABSENT: distended, guarding, mass, rebound, tenderness Extremities exam: ABSENT: calf tenderness, clubbing, joint swelling, pedal edema, tenderness, +1 edema Musculoskeletal exam: ABSENT: deformity, dislocation Neurological exam: PRESENT: alert, awake Psychiatric exam: PRESENT: appropriate affect Skin exam: PRESENT: dry, warm Results Laboratory Results: 11/27/19 05:13 11/27/19 05:13 11/26/19 11/26/19 11/26/19 21:08 21:08 21:08 WBC 15.2 H RBC 4.50 Hgb 13.9 Hct 41.4 MCV 92 MCH 30.8 MCHC 33.5 RDW 14.1 H Plt Count 401 Seg Neutrophils % 75.7 Sodium 138.0 Potassium 4.4 Chloride 103 Carbon Dioxide 26 Anion Gap 9 BUN 4 L Creatinine 0.69 Est GFR ( Amer) > 60 Glucose 102 Lactic Acid Calcium 9.8 Total Bilirubin 0.9 AST 22 Alkaline Phosphatase 81 Total Protein 7.6 Albumin 4.5 Serum HCG, Qual NEGATIVE 11/26/19 11/27/19 11/27/19 23:08 05:13 05:13 WBC 11.4 H RBC 4.01 Hgb 12.3 Hct 37.2 MCV 93 MCH 30.5 MCHC 32.9 RDW 13.7 Plt Count 317 Seg Neutrophils % Sodium 135.9 L Potassium 4.4 Chloride 105 Carbon Dioxide 23 Anion Gap 8 BUN 4 L Creatinine 0.69 Est GFR ( Amer) > 60 Glucose 109 Lactic Acid 0.7 Calcium 9.0 Total Bilirubin AST Alkaline Phosphatase Total Protein Albumin Serum HCG, Qual 11/26/19 21:08 Troponin I < 0.012 NT-Pro-B Natriuret Pep 57 Impressions: Chest X-Ray 11/26/19 20:50 IMPRESSION: Density in the lateral inferior right chest concerning for pneumonia Chest/Abdomen CTA 11/26/19 22:53 IMPRESSION: Right lower lobe pulmonary emboli with associated effusion and pulmonary infarcts. Assessment & Plan - Diagnosis (1) Pleuritic chest pain Is this a current diagnosis for this admission?: Yes Plan: IV Motrin 800 mg as needed (2) Pulmonary embolism Qualifiers: Pulmonary embolism type: other Chronicity: acute Acute cor pulmonale presence: without acute cor pulmonale Qualified Code(s): I26.99 - Other pulmonary embolism without acute cor pulmonale Is this a current diagnosis for this admission?: Yes Plan: As per hematology receiving Eliquis twice daily patient's more stable she may have a hypercoagulability work-up as apparently one grandparent had multiple DVTs - Time Time Spent with patient: 50 min - Plan Summary Plan Summary: Eliquis twice daily as initiated IV Motrin as needed No obvious etiology additional work-up when patient is stable
[2019-11-27] MEDS: APIXABAN 5 MG TABLET PO SCH (18:08)
--- NOTE | 2019-11-27 19:14 | EKG REPORT ---
SEVERITY:- NORMAL ECG - SINUS RHYTHM : Confirmed by: Esperanza Hinton 27-Nov-2019 19:13:18
[2019-11-28] MEDS: MORPHINE SULFATE 10 MG/ML INJ IV PRN ×2 (04:12→07:34)
[2019-11-28] MEDS: ONDANSETRON HCL INJ/PF 4 MG/2 ML SDV IV PRN (04:13)
[2019-11-28] MEDS: FAMOTIDINE 20 MG TABLET PO SCH (09:42)
[2019-11-28] MEDS: APIXABAN 5 MG TABLET PO SCH (09:42)
[2019-11-28] MEDS: DOCUSATE SODIUM 100 MG CAPSULE PO SCH (09:43)
--- NOTE | 2019-11-28 09:56 | PDOC DISCHARGE SUMMARY ---
Impression - Admit/DC Date/PCP Admission Date/Primary Care Provider: 11/27/19 01:38 JONELLE KIDD MD Discharge Date: 11/28/19 - Discharge Diagnosis (1) Pulmonary embolism Is this a current diagnosis for this admission?: Yes (2) Pleuritic chest pain Is this a current diagnosis for this admission?: Yes (3) Cough Is this a current diagnosis for this admission?: Yes (4) Leukocytosis Is this a current diagnosis for this admission?: Yes - Assessment Summary: Ms. Joellen Baez is a 24-year-old female who presented to the emergency department on 11/26/2019 regarding 2-day history of shortness of breath and pleuritic pain located primarily to the right posterior upper back with associated non-bloody productive cough. Denies hx of DVT/PE, cancer, recent surgeries, long trips, trauma, or OCP use. She does not smoke cigarets. Family history significant for maternal grandmother with hx of DVT, otherwise denies familial thrombotic events. In the ED she was found to be tachycardic with a mildly positive d-dimer (0.52), chest x-ray notable for density in the lateral inferior right chest, and CTA notable for right lower lobe pulmonary emboli with associated effusion and pulmonary infarcts. Further investigation was conducted regarding right heart strain with EKG NSR, troponin within normal limits, and BNP within normal limits. She was subsequently treated with single dose of Lovenox and admitted to hospital service for observation and initiation of appropriate anticoagulation therapy for unprovoked pulmonary embolism. Pulmonary Embolism: Upon admission Lovenox was discontinued, Eliquis 10mg BID initiated. Will continue with Eliquis 10mg BID for a total of 7 days, then 5mg BID for x6 months, as advised by Dr. Qureshi. Provided patient with prescription today and instructed on appropriate use of medication. Dr. Qureshi, hematology, was consulted. Advised on no further workup during hospitalization. Recommends outpatient hematology followup for hypercoag testing and further risk assessment. F/u at his office will be arranged. Pleuritic Chest Pain: Pain is managed with morphine while in the hospital. Her pain has significantly improved from 8/10 initially to 4/10 today. Discussed outpatient management of pain and inflammation including ibuprofen 400 to 600 mg 2-3 times daily with meals. She is not to utilize ibuprofen therapy for more than 5 days following discharge as there is an increased risk of bleeding. Discussed bleeding risk in detail with the patient. She expressed understanding and agreement. She can also utilize a heating pad for further symptomatic r elief. Cough: Significant improvement in cough. She can utilize [id number] cough suppressants as needed. Leukocytosis: Mild leukocytosis (11.4). Suspect this is secondary to pulmonary embolism/ inflammation, as this improved with treatment over the course of her stay. Infectious etiology less likely as patient is afebrile, denies sick contacts, an d no infectious process has been indicated on diagnostics thus far. No further work-up necessary at this time. She is scheduled to follow-up with Dr. Qureshi, further work-up can be pursued at that time if it is felt necessary. - Additional Information Resuscitation Status: Full Code Discharge Diet: As Tolerated Discharge Activity: Activity As Tolerated Referrals: TERRENCE CONNELLY APRN [NO LOCAL MD] - Follow up as needed Prescriptions: Apixaban [Eliquis] 5 mg PO ASDIR PRN #1 tab.ds.pk PRN Reason: Home Medications: Apixaban [Eliquis] 5 mg PO ASDIR PRN #1 tab.ds.pk 11/28/19 History of Present Illiness History of Present Illness: JOELLEN BAEZ is a 24 year old female Physical Exam Vital Signs: Temp Pulse Resp BP Pulse Ox 99.1 F 87 17 112/55 L 100 11/28/19 07:43 11/28/19 07:43 11/28/19 07:43 11/28/19 07:43 11/28/19 07:43 Intake & Output 11/27/19 11/28/19 11/29/19 06:59 06:59 06:59 Intake Total 1221 940 Output Total 400 Balance 821 940 Weight 79.1 kg 77 kg General appearance: PRESENT: no acute distress, cooperative, well-developed, well-nourished Head exam: PRESENT: atraumatic, normocephalic Eye exam: PRESENT: EOMI, PERRLA. ABSENT: scleral icterus Ear exam: PRESENT: normal external ear exam. ABSENT: bleeding, drainage Mouth exam: PRESENT: moist, tongue midline Neck exam: PRESENT: full ROM. ABSENT: lymphadenopathy, tenderness, thyromegaly Respiratory exam: PRESENT: clear to auscultation zak, symmetrical, unlabored. ABSENT: decreased breath sounds, tachypnea, wheezes Cardiovascular exam: PRESENT: RRR, +S1, +S2. ABSENT: diastolic murmur, gallop, rubs, systolic murmur Pulses: PRESENT: normal radial pulses GI/Abdominal exam: PRESENT: normal bowel sounds, soft. ABSENT: distended, firm, guarding, tenderness Rectal exam: PRESENT: deferred Extremities exam: PRESENT: full ROM. ABSENT: calf tenderness, pedal edema, tenderness Musculoskeletal exam: PRESENT: ambulatory, full ROM. ABSENT: deformity, dis location Neurological exam: PRESENT: alert, awake, oriented to person, oriented to place, oriented to time, oriented to situation, CN II-XII grossly intact. ABSENT: motor sensory deficit Psychiatric exam: PRESENT: appropriate affect, normal mood Skin exam: PRESENT: dry, intact, normal color, warm. ABSENT: erythema, petech iae Results Laboratory Results: WBC 11.4 10^3/uL (4.0-10.5) H 11/27/19 05:13 RBC 4.01 10^6/uL (3.72-5.28) 11/27/19 05:13 Hgb 12.3 g/dL (12.0-15.5) 11/27/19 05:13 Hct 37.2 % (36.0-47.0) 11/27/19 05:13 MCV 93 fl (80-97) 11/27/19 05:13 MCH 30.5 pg (27.0-33.4) 11/27/19 05:13 MCHC 32.9 g/dL (32.0-36.0) 11/27/19 05:13 RDW 13.7 % (11.5-14.0) 11/27/19 05:13 Plt Count 317 10^3/uL (150-450) 11/27/19 05:13 Lymph % (Auto) 12.7 % (13-45) L 11/26/19 21:08 [place] % (Auto) 10.3 % (3-13) 11/26/19 21:08 Eos % (Auto) 0.8 % (0-6) 11/26/19 21:08 Baso % (Auto) 0.5 % (0-2) 11/26/19 21:08 Absolute Neuts (auto) 11.5 10^3/uL (1.7-8.2) H 11/26/19 21:08 Absolute Lymphs (auto) 1.9 10^3/uL (0.5-4.7) 11/26/19 21:08 Absolute Monos (auto) 1.6 10^3/uL (0.1-1.4) H 11/26/19 21:08 Absolute Eos (auto) 0.1 10^3/uL (0.0-0.6) 11/26/19 21:08 Absolute Basos (auto) 0.1 10^3/uL (0.0-0.2) 11/26/19 21:08 Seg Neutrophils % 75.7 % (42-78) 11/26/19 21:08 D-Dimer 0.52 ug/mL (0.00-0.50) H 11/26/19 21:08 Sodium 135.9 mmol/L (137-145) L 11/27/19 05:13 Potassium 4.4 mmol/L (3.6-5.0) 11/27/19 05:13 Chloride 105 mmol/L (98-107) 11/27/19 05:13 Carbon Dioxide 23 mmol/L (22-30) 11/27/19 05:13 Anion Gap 8 (5-19) 11/27/19 05:13 BUN 4 mg/dL (7-20) L 11/27/19 05:13 Creatinine 0.69 mg/dL (0.52-1.25) 11/27/19 05:13 Est GFR ( Amer) > 60 (>60) 11/27/19 05:13 Est GFR (MDRD) Non-Af > 60 (>60) 11/27/19 05:13 Glucose 109 mg/dL (75-110) 11/27/19 05:13 Lactic Acid 0.7 mmol/L (0.7-2.1) 11/26/19 23:08 Calcium 9.0 mg/dL (8.4-10.2) 11/27/19 05:13 Total Bilirubin 0.9 mg/dL (0.2-1.3) 11/26/19 21:08 Direct Bilirubin 0.3 mg/dL (0.0-0.4) 11/26/19 21:08 Neonat Total Bilirubin Not Reportable 11/26/19 21:08 Neonat Direct Bilirubin Not Reportable 11/26/19 21:08 Neonat Indirect Bili Not Reportable 11/26/19 21:08 AST 22 U/L (14-36) 11/26/19 21:08 ALT 18 U/L (<35) 11/26/19 21:08 Alkaline Phosphatase 81 U/L (38-126) 11/26/19 21:08 Troponin I < 0.012 ng/mL 11/26/19 21:08 NT-Pro-B Natriuret Pep 57 pg/mL (<125) 11/26/19 21:08 Total Protein 7.6 g/dL (6.3-8.2) 11/26/19 21:08 Albumin 4.5 g/dL (3.5-5.0) 11/26/19 21:08 Serum HCG, Qual NEGATIVE (NEGATIVE) 11/26/19 21:08 COVID-19 Source NASOPHARYNGEAL 11/26/19 22:20 COVID-19 ([facility]) Not Detected (Not Detect) 11/26/19 22:20 11/26/19 21:08 Troponin I < 0.012 NT-Pro-B Natriuret Pep 57 Impressions: Chest X-Ray 11/26/19 20:50 IMPRESSION: Density in the lateral inferior right chest concerning for pneumonia Chest/Abdomen CTA 11/26/19 22:53 IMPRESSION: Right lower lobe pulmonary emboli with associated effusion and pulmonary infarcts. Stroke Is this a Stroke Patient?: No Acute Heart Failure Is this a Heart Failure Patient?: No
[2019-11-28 10:11] VITALS: BP 144/62
[2019-11-28] MEDS ORDERED: ONDANSETRON HCL INJ/PF 4 MG/2 ML SDV IV PRN (11:00)
== END 2019-11-28 11:00 | disposition home or self-care (01) ==
LOC: ER 19:08 → EH 11-27 01:38 → 3W 11-27 02:55 → 3N 11-27 08:10
PROVIDERS: ADMIT Emergency Medicine; ATTEND Hospitalist
DX: I26.99 Other pulmonary embolism without acute cor pulmonale (principal); R07.81 Pleurodynia; R05 Cough; D72.829 Elevated white blood cell count, unspecified; R00.0 Tachycardia, unspecified; Z20.828 Contact with and (suspected) exposure to other viral communicable diseases; Z82.49 Family history of ischemic heart disease and other diseases of the circulatory system; Z87.891 Personal history of nicotine dependence; Z87.09 Personal history of other diseases of the respiratory system; Z86.79 Personal history of other diseases of the circulatory system
CPT/HCPCS: 99285; 96361; 96374; 36415 ×2; 83605; 84703; 85025; 85027; 87635; 80048; 80053; 84484; 85379; 83880; 71045; 71275; 93005; 93010; 94640; G0378 ×3; J3490 ×7; Q0144; J2270 ×3; J2405 ×2; J7030; J7050; J1741; C9803